=== PATIENT | female | born 1975 | race Caucasian/White ===

== ENCOUNTER 2016-06-22 14:46 | Inpatient (IN) | payer OTHER ==
[2016-06-22] MEDS ORDERED: ONDANSETRON 4 MG/2 ML VIAL IVP PRN (16:09)
[2016-06-22] MEDS ORDERED: RIVAROXABAN 10 MG TAB PO SCH (17:30)
[2016-06-22] MEDS: HYDROmorphone 1 MG/ML 1 ML SYRINGE IVP PRN (17:36)
[2016-06-22 17:41] LABS: Basophils % (A) 1 %; CH 30.4; CHCM 33.1; Eosinophils # (A) 0.1 k/uL (0-0.7); Eosinophils % (A) 2 %; HCT 41.5 % (34.0-46.0); HDW 2.37; HGB 13.4 gm/dL (11.4-16.0); Luc # (Auto) 0.16; Luc % (Auto) 3; Lymphocytes # (A) 1.4 k/uL (1.0-4.8); Lymphocytes % (A) 21 %; MCH 29.9 pg (25.0-35.0); MCHC 32.4 g/dL (31.0-37.0); MCV 92.3 fL (80.0-100.0); Monocytes # (A) 0.4 k/uL (0-1.0); Monocytes % (A) 6 %; Neutrophils # (A) 4.5 k/uL (1.3-7.7); Neutrophils % (A) 68 %; RBC 4.49 m/uL (3.80-5.40); RDW 12.5 % (11.5-15.5); WBC 6.5 k/uL (3.8-10.6); WBC (Perox) 6.74
[2016-06-22 17:49] LABS: Prothrombin Time 10.6 sec (9.0-12.0)
[2016-06-22 18:11] LABS: ALT 25 U/L (9-52); AST 16 U/L (14-36); Alkaline Phosphatase 57 U/L (38-126); Anion Gap 10 mmol/L; Blood Urea Nitrogen 12 mg/dL (7-17); Calcium 9.1 mg/dL (8.4-10.2); Carbon Dioxide 25 mmol/L (22-30); Chloride 104 mmol/L (98-107); Glucose 88 mg/dL (74-99); Non-African American GFR(MDRD) >60 (>60 ml/min/1.73 sqM); Potassium 4.4 mmol/L (3.5-5.1); Sodium 139 mmol/L (137-145); Total Bilirubin 0.4 mg/dL (0.2-1.3); Total Protein 6.6 g/dL (6.3-8.2)
[2016-06-22 18:24] VITALS: BMI 27.2
--- NOTE | 2016-06-22 19:46 | CONS ---
DATE OF CONSULTATION: This is a 41-year-old female. She has been admitted to Dr. Kumar Ram's service. Patient had a history of trauma to the right lower extremity a week ago when she went for asking and according to the patient she dislocated knee. She went to [facility]. After the reduction she was sent to [facility]. Patient was seen by Dr. Kumar Ram and is scheduled to have MRI on Saturday. Patient has swelling in the right lower extremity with marked tenderness. The patient has been admitted and venous ultrasound of the right leg showed no evidence of acute DVT in the right lower extremity from groin to the knee and the thrombus below the level of the knee felt to be present which are not compressible. PERSONAL HISTORY: No allergies. MEDICAL HISTORY: No history of diabetes, hypertension, coronary artery disease. On examination, the patient's vital signs are stable. No shortness of breath. Neck is supple. Chest is clear to auscultation. Abdomen is soft. Femoral pulses are present. Dorsalis pedis is palpable. Patient has a compression wrap to the right knee. IMPRESSION: Infrapopliteal deep venous thrombosis. Discussed with Dr. Nunez who is her medical care doctor and we agreed to put her on Xarelto and if patient goes home, I will follow in my office and next Saturday we will repeat the ultrasound.
[2016-06-22] MEDS: HYDROcodone/APAP 5-325MG 1 EACH TAB PO PRN (20:26)
[2016-06-23] MEDS: HYDROmorphone 1 MG/ML 1 ML SYRINGE IVP PRN ×2 (00:41→09:50)
[2016-06-23 02:26] VITALS: RESP 16
[2016-06-23] MEDS: HYDROcodone/APAP 5-325MG 1 EACH TAB PO PRN ×2 (04:14→14:03)
[2016-06-23 07:34] VITALS: BP 116/59; PULSE 68; TEMP 98.4
--- NOTE | 2016-06-23 10:04 | P.HPOR ---
History of Present Illness H&P Date: 06/23/16 Chief Complaint: Right lower extremity DVT This is a 41-year-old female who originally presented in our office with right knee pain since sustaining an injury while skiing on 06/16/2016. She was seen in the ER at [facility] and x-rays were obtained and a knee immobilizer was applied. The patient did follow-up in our office yesterday with Dr. Ram, 06/22/2016. She has been using crutches. Patient was complaining of significant pain behind the calf and medial joint line pain. The patient was sent for a venous Doppler that revealed a small segment of DVT in the posterior tibial pain. The patient was subsequently admitted for anticoagulation and further evaluation. An MRI of the right knee was also ordered which is scheduled for 06/25/2016, at our office. Patient has been seen and evaluated by Dr. Lorenzo from vascular surgery and he recommends treatment with Xarelto. Today, the patient states that her calf is feeling better and her swelling has improved. She states that she is having significant pain when the when the leg is not elevated and she is up ambulating to the bathroom. Today, she denies fever, chills, rigors, abdominal pain, shortness breath, and chest pain. Review of Systems Constitutional: Reports as per HPI Past Medical History Past Medical History: No Reported History Additional Past Medical History / Comment(s): RT EYE GLAUCOMA,endometreosis, dysmenorrhea(had partial hysterectomy still has ovaries), murmur," leaky valve" , palpatations, kidney stone, ibs, stress incont of urine. mono as teenager. "for about a year had tested positive for lupus anticoag then stopped testing positive and about the same time was told by one dr she had ms(lesions on brain) -went to [facility] for neurolgy and they said she did'nt have it- nothing found", recent rt knee injury d/t skiing accident-using crutches/w/c History of Any Multi-Drug Resistant Organisms: None Reported Past Surgical History: Appendectomy, Cholecystectomy, Hysterectomy Additional Past Surgical History / Comment(s): laparoscopy d/t endometreosis, partial hysterectomy and panniculectomy 2010 Past Anesthesia/Blood Transfusion Reactions: Previous Problems w/ Anesthesia Additional Past Anesthesia/Blood Transfusion Reaction / Comment(s): difficulty waking Past Psychological History: Anxiety, Depression Smoking Status: Current some day smoker Past Alcohol Use History: Occasional Past Drug Use History: None Reported Medications and Allergies Home Medications Medication Instructions Recorded Confirmed Type HYDROcodone/APAP 5-325MG [[place] 1 - 2 tab PO Q4HR PRN 06/22/16 06/22/16 History 5-325] Ibuprofen [Advil] 600 mg PO DAILY PRN 06/22/16 06/22/16 History Latanoprost [Xalatan 0.005%] 1 drop BOTH EYES HS 06/22/16 06/22/16 History Allergies Allergy/AdvReac Type Severity Reaction Status Date / Time No Known Allergies Allergy Verified 06/22/16 15:40 Physical Examination The patient is in no acute distress. She is alert and oriented 3. Focused exam of the right lower extremity reveals moderate swelling to the right knee and calf. No open wounds present. She has limited range of motion to the right knee and foot/ankle due to pain and guarding. She is pain upon palpation to the posterior calf area and medial joint line. Neurological and circulatory status is intact to the right lower extremity. Results - Labs Labs: H & H 06/22/16 Range/Units 17:24 Hgb 13.4 (11.4-16.0) gm/dL Hct 41.5 (34.0-46.0) % Coagulation 06/22/16 Range/Units 17:24 INR 1.0 (<1.1) Result Diagrams: 06/22/16 17:24 06/22/16 17:24 - Diagnostic results Knee x-ray: other (Right knee x-ray obtained in our office reveals no obvious acute fracture.) Assessment and Plan (1) Deep vein thrombosis (DVT) of right lower extremity Status: Acute (2) Knee pain, right Status: Acute Plan: The clinical and doppler findings were discussed with the patient. The patient was started on Xarelto yesterday. Case management is currently looking into possible payment options for outpatient Xarelto due to lack of insurance at this time. The patient has applied for Medicaid which will be retroactive starting 06/06/2016. Dr. Lorenzo has seen and evaluated the patient and is recommending follow-up next week on Saturday for a repeat Doppler. Patient is also scheduled for a right knee MRI on [place] with follow-up with Dr. Ram on Saturday. The patient was instructed to continue to obtain MRI and follow- ups. The patient is orthopedically stable for discharge today as long as Xarelto is obtained and Dr. Nunez has signed off. The patient currently has pain medication at home in the form of [place] which she will continue. She also continue right knee immobilizer and/or brace as tolerated. Continue protective weightbearing with crutches.
[2016-06-23] MEDS ORDERED: HYDROcodone/APAP 5-325MG 1 EACH TAB PO PRN (14:03)
--- NOTE | 2016-06-23 14:03 | P.CONS ---
History of Present Illness - Reason for Consult Consult date: 06/23/16 Medical management of anticoagulation - History of Present Illness The patient is a 41-year-old white female, well-known to me. She has a history of depression and nonspecific medical complaints previously worked of his MS. She was out skiing 1 week ago and had never been before. She reports falling and twisting her right knee. She was in severe pain and was seen and Collette Washington. Placed in a knee immobilizer. She reports increasing pain in the right posterior calf. Report it became hard and very uncomfortable. She was seen by Dr. Ram, at orthopedic [facility] and was scheduled for stat ultrasound for DVT. A DVT was found at that point and she was admitted for further evaluation and management. Dr. Lorenzo and I discussed Leny's case and felt Xarelto would be the best anticoagulation for her. She has already been started on this. Review of Systems All systems: negative Constitutional: Denies chills, Denies fever Eyes: denies blurred vision, denies pain Ears, nose, mouth and throat: Denies headache, Denies sore throat Cardiovascular: Denies chest pain, Denies shortness of breath Respiratory: Denies cough Gastrointestinal: Denies abdominal pain, Denies diarrhea, Denies nausea, Denies vomiting Genitourinary: Denies dysuria, Denies hematuria Musculoskeletal: Reports as per HPI, Reports limitation of motion, Reports muscle cramps Musculoskeletal: right: knee stiffness, knee swelling Integumentary: Denies pruritus, Denies rash Neurological: Denies numbness, Denies weakness Psychiatric: Denies anxiety, Denies depression Endocrine: Denies fatigue, Denies weight change Past Medical History Past Medical History: No Reported History, Eye Disorder (Right eye glaucoma), Neurologic Disorder (Previous MS suspect, ruled out) History of Any Multi-Drug Resistant Organisms: None Reported Past Surgical History: Appendectomy, Cholecystectomy, Hysterectomy Additional Past Surgical History / Comment(s): laparoscopy d/t endometreosis, partial hysterectomy and panniculectomy 2010 Past Anesthesia/Blood Transfusion Reactions: Previous Problems w/ Anesthesia Additional Past Anesthesia/Blood Transfusion Reaction / Comm: difficulty waking Past Psychological History: Anxiety, Depression Smoking Status: Current some day smoker Past Alcohol Use History: Occasional Past Drug Use History: None Reported Medications and Allergies Home Medications Medication Instructions Recorded Confirmed Type HYDROcodone/APAP 5-325MG [[place] 1 - 2 tab PO Q4HR PRN 06/22/16 06/22/16 History 5-325] Ibuprofen [Advil] 600 mg PO DAILY PRN 06/22/16 06/22/16 History Latanoprost [Xalatan 0.005%] 1 drop BOTH EYES HS 06/22/16 06/22/16 History Allergies Allergy/AdvReac Type Severity Reaction Status Date / Time No Known Allergies Allergy Verified 06/22/16 15:40 Physical Exam Vitals: Vital Signs Temp Pulse Resp BP BP Pulse Ox 06/23/16 07:33 98.4 F 68 16 116/59 98 06/23/16 02:00 98.1 F 72 16 125/68 97 06/22/16 19:30 99.1 F 76 20 120/53 96 06/22/16 15:41 98.5 F 76 14 120/76 97 Intake and Output 06/22/16 06/23/16 06/23/16 22:59 06:59 14:59 Intake Total 580 200 360 Balance 580 200 360 Intake: Oral 580 200 360 Other: Voiding Method Toilet Toilet # Voids 2 4 Weight 86.183 kg GENERAL: Well-appearing, well-nourished and in no acute distress. HEAD: Atraumatic, normocephalic. EYES: Pupils equal round and reactive to light, extraocular movements intact, sclera anicteric, conjunctiva are normal. ENT:nares patent, oropharynx clear without exudates. Moist mucous membranes. NECK: Normal range of motion, supple without lymphadenopathy or JVD, no thyromegaly LUNGS: Breath sounds clear to auscultation bilaterally and equal. No wheezes rales or rhonchi. HEART: Regular rate and rhythm without murmurs, rubs or gallops.S1S2 Normal ABDOMEN: Soft, nontender, normoactive bowel sounds. No guarding, no rebound. No masses appreciated. EXTREMITIES: Right lower extremity shows mild calor to the right calf. There is an ice pack on this time. Range of motion was deferred. NEUROLOGICAL: Cranial nerves II through XII grossly intact. Normal speech, normal gait. PSYCH: Normal mood, normal affect. SKIN: Warm, Dry, normal turgor, no rashes or lesions noted. Results CBC & Chem 7: 06/22/16 17:24 06/22/16 17:24 Assessment and Plan Plan: Acute right popliteal DVT: She's been started on Xarelto. Dr. Lorenzo and I discussed her case. She will follow-up with him outpatient. She'll remain on Xarelto 20 mg daily at this time. Acute right knee injury: Orthopedics is following. She has an MRI scheduled on Saturday. She currently has Dilaudid and [place] for pain Anxiety: She will restart her Klonopin that she previously had. Depression: She'll follow-up in the office for further discussions of this. We will reevaluate her past medications and what had it had not worked for her. Medically she can be cleared for discharge she is anticoagulated adequately with Xarelto. She will remain on 20 mg daily. Thank you for allowing me to participate in tongue his care, please contact me should any questions arise.
[2016-06-23] MEDS ORDERED: clonazePAM 0.5 MG TAB PO SCH (21:00)
[2016-06-23] MEDS ORDERED: LATANOPROST 0.005% OPHTH DROPS 2.5 ML BTL BOTH EYES SCH (21:00)
--- NOTE | 2016-06-27 14:10 | P.DS ---
Providers Date of admission: 06/22/16 15:09 Expected date of discharge: 06/23/16 Attending physician: Kumar Ram Consults: 06/22/16 15:19 Consult Physician Routine Consulting Provider: Camilo Lorenzo Consult Reason/Comments: right leg DVT Do you want consulting provider notified?: Yes Consult Physician Routine Consulting Provider: Santy Nunez Consult Reason/Comments: medical management/anticoagulation management Do you want consulting provider notified?: Yes Primary care physician: Santy Nunez - Discharge Diagnosis(es) (1) Deep vein thrombosis (DVT) of right lower extremity Status: Acute (2) Knee pain, right Status: Acute Hospital Course: The patient is a 41-year-old female who presented to our office with right knee pain after sustaining an injury while skiing on 06/16/2016. She was seen in the ER at [facility] and x-rays were obtained. The patient was placed in a knee immobilizer and using crutches at that time. She presented to our office for a follow-up with Dr. Ram on 06/22/2016. A venous Doppler was ordered due to pain and swelling in her right calf. The Doppler revealed a small segment of DVT in the posterior tibial vein. The patient was admitted directly to our service for DVT treatment. The patient was seen and evaluated by Dr. Lorenzo from vascular surgery and her primary care physician Dr. Nunez. She was placed on Xarelto for DVT treatment. On the day of discharge, the patient states that her leg seems to be improved but is still having some pain to the anterior-medial aspect of her right lower leg. Vital signs and labs are stable on the day of discharge. On exam the patient is in no acute distress. She is alert and oriented 3. Focused exam of the right lower extremity reveals moderate swelling to the right knee and calf area no open wounds are present. She has limited range of motion to the right knee and foot/ankle due to pain and guarding. She has pain upon palpation to the posterior calf and medial joint line. Neurological and circulatory status is intact to the right lower extremity. The patient is orthopedically stable for discharge home today. Patient Condition at Discharge: Stable Plan - Discharge Summary New Discharge Prescriptions: Rivaroxaban [Xarelto] 20 mg PO DAILY #30 tab Discharge Medication List HYDROcodone/APAP 5-325MG [[place] 5-325] 1 - 2 tab PO Q4HR PRN 06/22/16 [History] Ibuprofen [Advil] 600 mg PO DAILY PRN 06/22/16 [History] Latanoprost [Xalatan 0.005%] 1 drop BOTH EYES HS 06/22/16 [History] Rivaroxaban [Xarelto] 20 mg PO DAILY #30 tab 06/23/16 [Rx] Follow up Appointment(s)/Referral(s): Kumar Ram DO [Doctor of Osteopathic Medicine] - 1 Week (as previously scheduled ) Camilo Lorenzo MD [STAFF PHYSICIAN] - (follow up on Saturday06-27-2016 in office) Activity/Diet/Wound Care/Special Instructions: Right knee MRI scheduled for 06/25/2016. Anticoagulation per Dr. Nunez and vascular Keep right leg elevated Continue right knee immoblizer/brace Continue protective weightbearing with crutches Follow up with Dr. Ram as previously scheduled. Call [facility] with any questions or concerns, . Discharge Disposition: HOME SELF-CARE
== END 2016-06-23 16:05 | disposition home or self-care (01) | DRG 301 ==
LOC: 3SUR 15:09
PROVIDERS: ADMIT Orthopaedic Surgery; ATTEND Orthopaedic Surgery
DX: I82.431 Acute embolism and thrombosis of right popliteal vein (principal); F32.9 Major depressive disorder, single episode, unspecified; F41.9 Anxiety disorder, unspecified; H40.9 Unspecified glaucoma; S83.104S Unspecified dislocation of right knee, sequela; N39.3 Stress incontinence (female) (male); K58.9 Irritable bowel syndrome, unspecified; F17.200 Nicotine dependence, unspecified, uncomplicated; Z79.899 Other long term (current) drug therapy; Z87.442 Personal history of urinary calculi; Z90.710 Acquired absence of both cervix and uterus; Z90.49 Acquired absence of other specified parts of digestive tract; Z91.81 History of falling; Z87.42 Personal history of other diseases of the female genital tract; V00.3 Flat-bottomed pedestrian conveyance accident; Z86.19 Personal history of other infectious and parasitic diseases; Y93.23 Activity, snow (alpine) (downhill) skiing, snowboarding, sledding, tobogganing and snow tubing
CPT/HCPCS: 80053; 85025; 85610

== ENCOUNTER → 2016-06-22 | Outpatient (CLI) | payer SELFPAY ==
[~2016-06-22] MED LIST: HYDROcodone/APAP 5-325MG 1 EACH TAB PO PRN
--- NOTE | 2016-06-22 14:01 | US ---
EXAMINATION TYPE: US venous doppler duplex LE RT DATE OF EXAM: 06/22/2016 1:37 PM COMPARISON: Prior right lower extremity venous ultrasound September 30, 2014. CLINICAL HISTORY: I80.9 Phlebitis and thrombophlebitis of unspecified. Skiing injury to right knee an d lower leg with dislocated right knee with medial collateral ligament sprain; right posterior calf p ain SIDE PERFORMED: Right VESSELS IMAGED: Common Femoral Vein Deep Femoral Vein Greater Saphenous Vein * Femoral Vein Popliteal Vein Proximal Calf Veins (* superficial vessels) TECHNOLOGIST IMPRESSION: wnl Right Leg: Short segment of posterior tibial vein pair is noted with internal echoes mid calf and no color flow or compression is demonstrated mid level; otherwise other assessed veins are negative for DVT and SVT IMPRESSION: No evidence of acute DVT right lower extremity from groin to knee. Short segment thrombu s below level of knee felt present by technologist and there is absent color flow and noncompressibil ity noted in the proximal calf veins.
== END | disposition home or self-care (01) ==
LOC: RADUSWWP 12:46
PROVIDERS: ATTEND Orthopaedic Surgery
DX: M25.561 Pain in right knee (principal); S83.411A Sprain of medial collateral ligament of right knee, initial encounter; I80.9 Phlebitis and thrombophlebitis of unspecified site; X58.XXXA Exposure to other specified factors, initial encounter

== ENCOUNTER 2016-10-17 19:40 | Emergency (ER) | payer OTHER ==
--- NOTE | 2016-10-17 21:30 | US ---
EXAMINATION TYPE: US venous doppler duplex LE RT DATE OF EXAM: 10/17/2016 9:15 PM COMPARISON: Prior in PACS CLINICAL HISTORY: Pain right leg . Patient states history of clot in right leg in June SIDE PERFORMED: Right TECHNIQUE: The lower extremity deep venous system is examined utilizing real time linear array sonog jojo with graded compression, doppler sonography and color-flow sonography. VESSELS IMAGED: External Iliac Vein (EIV) Common Femoral Vein Deep Femoral Vein Greater Saphenous Vein * Femoral Vein Popliteal Vein Small Saphenous Vein * Proximal Calf Veins (* superficial vessels) Right Leg: Negative for DVT IMPRESSION: Normal exam. No evidence of deep venous thrombosis in the right leg.
--- NOTE | 2016-10-17 21:37 | ED ---
Extremity Problem HPI - General Chief complaint: Extremity Problem,Nontraumatic Stated complaint: Leg Pain/Poss Blood clot Time Seen by Provider: 10/17/16 20:13 Source: patient, RN notes reviewed, old records reviewed Mode of arrival: ambulatory Limitations: no limitations - History of Present Illness Initial comments: 41-year-old female presents to the right calf pain and ankle swelling for the past day. Patient reports that she's had a history of blood clot in the past. Patient reports a few months ago she had a sprain to her knee and is currently being treated by a physician in [place] for torn ACL, MCL the knee. The report that she is on a CPM machine at night. Patient states that over the past few days she's noticed the swelling and pain over her Achilles tendon. Patient states that after her knee injury she developed a blood clot and was placed on Velcro wrist. Patient reports the clot was resolved. She reports that the pain she is experiencing the past day with similar to when she initially had her clot and is concerned. Patient denies any prolonged sitting, smoking, or history of control or estrogen use. Patient states that she's had no fever or chills, chest pain or shortness of breath. Denies any abdominal pain, nausea or vomiting, dysuria or hematuria, diarrhea or melena. - Related Data Home Medications Medication Instructions Recorded Confirmed HYDROcodone/APAP 5-325MG [[place] 1 tab PO TID PRN 06/22/16 10/17/16 5-325] Latanoprost [Xalatan 0.005%] 1 drop BOTH EYES HS 06/22/16 10/17/16 Aspirin EC [Ecotrin Low Dose] 81 mg PO DAILY PRN 10/17/16 10/17/16 Allergies Allergy/AdvReac Type Severity Reaction Status Date / Time No Known Allergies Allergy Verified 10/17/16 20:32 Review of Systems ROS Statement: Those systems with pertinent positive or pertinent negative responses have been documented in the HPI. ROS Other: All systems not noted in ROS Statement are negative. Past Medical History Past Medical History: No Reported History, Eye Disorder, Neurologic Disorder Additional Past Medical History / Comment(s): RT EYE GLAUCOMA,endometreosis, dysmenorrhea(had partial hysterectomy still has ovaries), murmur," leaky valve" , palpatations, kidney stone, ibs, stress incont of urine. mono as teenager. "for about a year had tested positive for lupus anticoag then stopped testing positive and about the same time was told by one dr she had ms(lesions on brain) -went to [facility] for neurolgy and they said she did'nt have it- nothing found", recent rt knee injury d/t skiing accident-using crutches/w/c History of Any Multi-Drug Resistant Organisms: None Reported Past Surgical History: Appendectomy, Cholecystectomy, Hysterectomy Additional Past Surgical History / Comment(s): laparoscopy d/t endometreosis, partial hysterectomy and panniculectomy 2010 Past Anesthesia/Blood Transfusion Reactions: Previous Problems w/ Anesthesia Additional Past Anesthesia/Blood Transfusion Reaction / Comment(s): difficulty waking Past Psychological History: Anxiety, Depression Smoking Status: Current some day smoker Past Alcohol Use History: Occasional Past Drug Use History: None Reported General Exam - General Exam Comments Initial Comments: All. 41-year-old female. No acute distress. Limitations: no limitations General appearance: alert, in no apparent distress Head exam: Present: atraumatic, normocephalic, normal inspection Eye exam: Present: normal appearance, PERRL, EOMI. Absent: scleral icterus, conjunctival injection, periorbital swelling ENT exam: Present: normal exam, mucous membranes moist Neck exam: Present: normal inspection. Absent: tenderness, meningismus, lymphadenopathy Respiratory exam: Present: normal lung sounds bilaterally. Absent: respiratory distress, wheezes, rales, rhonchi, stridor Cardiovascular Exam: Present: regular rate, normal rhythm, normal heart sounds. Absent: systolic murmur, diastolic murmur, rubs, gallop, clicks GI/Abdominal exam: Present: soft, normal bowel sounds. Absent: distended, tenderness, guarding, rebound, rigid Extremities exam: Present: normal inspection, full ROM, normal capillary refill , other (Patient has some minor swelling over the right ankle. No significant calf tenderness. No evidence of erythema or warmth.). Absent: tenderness, pedal edema, joint swelling, calf tenderness Back exam: Present: normal inspection Neurological exam: Present: alert, oriented X3, CN II-XII intact Psychiatric exam: Present: normal affect, normal mood Skin exam: Present: warm, dry, intact, normal color. Absent: rash Course Vital Signs 10/17/16 10/17/16 19:46 21:38 Temperature 98.6 F 98.9 F Pulse Rate 67 62 Respiratory 16 18 Rate Blood Pressure 117/59 118/57 O2 Sat by Pulse 98 100 Oximetry Medical Decision Making - Medical Decision Making 41-year-old female presents to the right calf pain and ankle swelling for the past day. Patient reports that she's had a history of blood clot in the past. Patient reports a few months ago she had a sprain to her knee and is currently being treated by a physician in [place] for torn ACL, MCL the knee. The report that she is on a CPM machine at night. Patient states that over the past few days she's noticed the swelling and pain over her Achilles tendon. Patient states that after her knee injury she developed a blood clot and was placed on Velcro wrist. Patient reports the clot was resolved. She reports that the pain she is experiencing the past day with similar to when she initially had her clot and is concerned. Patient denies any prolonged sitting, smoking, or history of control or estrogen use. Patient states that she's had no fever or chills, chest pain or shortness of breath. Denies any abdominal pain, nausea or vomiting, dysuria or hematuria, diarrhea or melena. Patient does have some minor swelling over the right lower ankle. No evidence of erythema or significant calf tenderness or swelling. Patient to have her ultrasound is negative for any blood clot. Patient is a deformity of self. Patient has been advised to follow-up with her primary care provider. Patient understands treatment plan will comply. Return parameters were discussed. Disposition Clinical Impression: Sprain of calcaneofibular ligament of right ankle Disposition: HOME SELF-CARE Condition: Good Instructions: Ankle Strain (ED) Additional Instructions: Patient advised to rest, ice, and elevate extremity. Apply ice over the area. Follow-up with primary care provider symptoms continue to persist. Return to the emergency department if any alarming signs or symptoms occur. Referrals: Santy Nunez MD [Primary Care Provider] - 1-2 days Time of Disposition: 21:36
[2016-10-17 21:39] VITALS: BP 118/57; PULSE 62; RESP 18; TEMP 98.9
== END 2016-10-17 21:45 | disposition home or self-care (01) ==
LOC: EC 19:40
DX: S93.411A Sprain of calcaneofibular ligament of right ankle, initial encounter (principal); H40.9 Unspecified glaucoma; F17.200 Nicotine dependence, unspecified, uncomplicated; Z79.899 Other long term (current) drug therapy; X58.XXXA Exposure to other specified factors, initial encounter
CPT/HCPCS: 99284

== ENCOUNTER 2017-06-17 15:41 | Emergency (ER) | payer OTHER ==
[2017-06-17 15:53] VITALS: BP 131/62; PULSE 77; RESP 18; TEMP 99.1
--- NOTE | 2017-06-17 16:30 | ED ---
General Adult HPI - General Chief complaint: Upper Respiratory Infection Stated complaint: flu symptoms Time Seen by Provider: 06/17/17 16:15 Source: patient, RN notes reviewed Mode of arrival: ambulatory Limitations: no limitations - History of Present Illness Initial comments: Patient 42-year-old female who presents emergency room today with a chief complaint of cough congestion. She does admit that she was suffering from a sinus infection for the last few weeks and a lot of drainage. She states she feels like it when down into her chest now. She does admit that she's had some body aches and chills that started last night as well. Patient does admit to sputum production that screening color. She denies any other complaints or symptoms at this time. Patient denies any recent fever, chills, shortness of breath, chest pain, back pain, abdominal pain, nausea or vomiting, numbness or tingling, headaches or visual changes, or any other complaints. - Related Data Home Medications Medication Instructions Recorded Confirmed Latanoprost [Xalatan 0.005%] 1 drop BOTH EYES HS 06/17/17 06/17/17 Previous Rx's Medication Instructions Recorded Azithromycin [Zithromax Z-pack] 0 mg PO DIRECTED #6 tab 06/17/17 predniSONE 20 mg PO BID 5 Days tab 06/17/17 Allergies Allergy/AdvReac Type Severity Reaction Status Date / Time No Known Allergies Allergy Verified 06/17/17 15:58 Review of Systems ROS Statement: Those systems with pertinent positive or pertinent negative responses have been documented in the HPI. ROS Other: All systems not noted in ROS Statement are negative. Past Medical History Past Medical History: Eye Disorder, Neurologic Disorder Additional Past Medical History / Comment(s): RT EYE GLAUCOMA,endometreosis, dysmenorrhea(had partial hysterectomy still has ovaries), murmur," leaky valve" , palpatations, kidney stone, ibs, stress incont of urine. mono as History of Any Multi-Drug Resistant Organisms: None Reported Past Surgical History: Appendectomy, Cholecystectomy, Hysterectomy Additional Past Surgical History / Comment(s): laparoscopy d/t endometreosis, partial hysterectomy and panniculectomy 2010 Past Anesthesia/Blood Transfusion Reactions: Previous Problems w/ Anesthesia Additional Past Anesthesia/Blood Transfusion Reaction / Comment(s): difficulty waking Past Psychological History: Anxiety, Depression Smoking Status: Current some day smoker Past Alcohol Use History: Occasional Past Drug Use History: None Reported General Exam - General Exam Comments Initial Comments: General: The patient is awake and alert, in no distress, and does not appear acutely ill. Eye: Pupils are equal, round and reactive to light, extra-ocular movements are intact. No nystagmus. There is normal conjunctiva bilaterally. No signs of icterus. Ears, nose, mouth and throat: There are moist mucous membranes and no oral lesions. Neck: The neck is supple. Cardiovascular: There is a regular rate and rhythm. No murmur, rub or gallop is appreciated. Respiratory: Lungs are clear to auscultation, respirations are non-labored, breath sounds are equal. No wheezes, stridor, rales, or rhonchi. Musculoskeletal: Normal ROM, no tenderness. Strength 5/5. Sensation intact. Pulses equal bilaterally 2+. Neurological: A&O x 3. CN II-XII intact, There are no obvious motor or sensory deficits. Coordination appears grossly intact. Speech is normal. Skin: Skin is warm and dry and no rashes or lesions are noted. Psychiatric: Cooperative, appropriate mood & affect, normal judgment. Limitations: no limitations Course Vital Signs 06/17/17 15:49 Temperature 99.1 F Pulse Rate 77 Respiratory 18 Rate Blood Pressure 131/62 O2 Sat by Pulse 100 Oximetry Medical Decision Making - Medical Decision Making Patient reexamined at this time shows no signs of distress. Influenza is negative. Emergency room. Patient's chest x-rays negative for pneumonia. Will be covered for a bronchitis and sinus infection. Patient also placed on a little coarse of steroids for her symptoms. Risperdal extremities return if symptoms increase or worsen or for new concerns. - Lab Data Lab Results 06/17/17 Range/Units 16:32 Influenza Type A RNA Not Detected (Not Detectd) Influenza Type B (PCR) Not Detected (Not Detectd) Disposition Clinical Impression: Acute sinusitis Disposition: HOME SELF-CARE Condition: Good Instructions: Sinusitis (ED) Additional Instructions: Please use medication as discussed. Please follow-up with family doctor in the next 2 days of symptoms have not improved. Please return to emergency room if the symptoms increase or worsen or for any other concerns. Prescriptions: Azithromycin [Zithromax Z-pack] 0 mg PO DIRECTED #6 tab predniSONE 20 mg PO BID 5 Days tab Referrals: Santy Nunez MD [Primary Care Provider] - 1-2 days Time of Disposition: 17:18
--- NOTE | 2017-06-17 17:08 | XR ---
EXAMINATION TYPE: XR chest 2V DATE OF EXAM: 06/17/2017 COMPARISON: 04/12/2010 HISTORY: Cough and congestion TECHNIQUE: Frontal and lateral views of the chest are obtained. FINDINGS: Heart and mediastinum are normal. Lungs are clear. Diaphragm is normal. Bony thorax is int act. IMPRESSION: Normal chest. No change.
== END 2017-06-17 17:26 | disposition home or self-care (01) ==
LOC: EC 15:41
DX: J01.90 Acute sinusitis, unspecified (principal); H40.9 Unspecified glaucoma; R52 Pain, unspecified; F17.200 Nicotine dependence, unspecified, uncomplicated; Z79.899 Other long term (current) drug therapy
CPT/HCPCS: 71046; 87502; 99283

== ENCOUNTER 2018-10-10 23:19 | Emergency (ER) | payer OTHER ==
--- NOTE | 2018-10-11 03:31 | ED ---
General Adult HPI - General Source: patient, RN notes reviewed, old records reviewed Mode of arrival: ambulatory Limitations: no limitations <Tad Bateman - Last Filed: 10/12/18 05:33> <Sandra Lei - Last Filed: 10/12/18 21:24> - General Chief complaint: ENT Stated complaint: Dental pain Time Seen by Provider: 10/11/18 03:04 - History of Present Illness Initial comments: 43-year-old female patient with no pertinent past medical history presents to ED with right tooth pain. Patient reports that she recently had some dental work done, and had some partial fillings placed. Patient reports that she has pain in redness on her 12th tooth. Patient states there is no way she can be . Patient denies any other complaints at this time. Systemic: Pt denies fatigue, fever/chills, rash. Pt denies weakness, night sweats, weight loss. Neuro: Pt denies headache, visual disturbances, syncope or pre-syncope. HEENT: Pt denies ocular discharge or irritation, otalgia, rhinorrhea, pharyngitis or notable lymphadenopathy. Cardiopulmonary: Pt denies chest pain, SOB, heart palpitations, dyspnea on exe rtion. Abdominal/GI: Pt denies abdominal pain, n/v/d. : Pt denies dysuria, burning w/ urination, frequency/urgency. Denies new onset urinary or bowel incontinence. MSK: Pt denies myalgia, loss of strength or function in extremities. Neuro: Pt denies new onset weakness, paresthesias. (Tad Bateman) - Related Data Home Medications Medication Instructions Recorded Confirmed Latanoprost [Xalatan 0.005%] 1 drop BOTH EYES HS 06/17/17 06/17/17 Previous Rx's Medication Instructions Recorded Azithromycin [Zithromax Z-pack] 0 mg PO DIRECTED #6 tab 06/17/17 predniSONE 20 mg PO BID 5 Days tab 06/17/17 Clindamycin [Cleocin] 450 mg PO Q8HR 10 Days #30 capsule 10/11/18 Allergies Allergy/AdvReac Type Severity Reaction Status Date / Time No Known Allergies Allergy Verified 10/10/18 23:31 Review of Systems ROS Other: All systems not noted in ROS Statement are negative. <Tad Bateman - Last Filed: 10/12/18 05:33> ROS Other: All systems not noted in ROS Statement are negative. <Sandra Lei Greg - Last Filed: 10/12/18 21:24> ROS Statement: Those systems with pertinent positive or pertinent negative responses have been documented in the HPI. Past Medical History Past Medical History: Eye Disorder, Neurologic Disorder Additional Past Medical History / Comment(s): RT EYE GLAUCOMA,endometreosis,dysmenorrhea(had partial hysterectomy still has ovaries), murmur," leaky valve", palpatations, kidney stone, ibs, stress incont of urine. mono as History of Any Multi-Drug Resistant Organisms: None Reported Past Surgical History: Appendectomy, Cholecystectomy, Hysterectomy Additional Past Surgical History / Comment(s): laparoscopy d/t endometreosis, partial hysterectomy and panniculectomy 2010 Past Anesthesia/Blood Transfusion Reactions: Previous Problems w/ Anesthesia Additional Past Anesthesia/Blood Transfusion Reaction / Comment(s): difficulty waking Past Psychological History: Anxiety, Depression Smoking Status: Former smoker Past Alcohol Use History: Occasional Past Drug Use History: None Reported <Tad Bateman - Last Filed: 10/12/18 05:33> General Exam Limitations: no limitations <Tad Bateman - Last Filed: 10/12/18 05:33> - General Exam Comments Initial Comments: Constitutional: NAD, AOX3, Pt has pleasant affect. HEENT: NC/AT, trachea midline, neck supple, no lymphadenopathy. Posterior pharynx non erythematous, without exudates. External ears appear normal, without discharge. Mucous membranes moist. Eyes PERRLA, EOM intact. There is no scleral icterus. No pallor noted. Mild erythema noted at 12th tooth, no drainable abscess. Cardiopulmonary: RRR, no murmurs, rubs or gallops, no JVD noted. Lungs CTAB in anterior and posterior gao. No peripheral edema. Abdominal exam: Abdomen soft and non-distended. Abdomen non-tender to palpation in all 4 quadrants. Bowel sounds active in LLQ. No hepatosplenomegaly. No ecchymosis Neuro: CN II-XII grossly intact. No nuchal rigidity. No raccon eyes, no de león sign, no hemotympanum. No cervical spinal tenderness. MSK: No posterior calf tenderness bilaterally, homans sign negative bilaterally. Posterior tibialis and radial pulse +2 bilaterally. Sensation intact in upper and lower extremities. Full active ROM in upper and lower extremities, 5/5 stregnth. (Tad Bateman) Course Vital Signs 10/10/18 10/11/18 23:27 03:59 Temperature 98.7 F 98.4 F Pulse Rate 63 67 Respiratory 18 19 Rate Blood Pressure 117/69 126/89 O2 Sat by Pulse 100 97 Oximetry Medical Decision Making <Tad Bateman - Last Filed: 10/12/18 05:33> <Sandra Lei - Last Filed: 10/12/18 21:24> - Medical Decision Making 43-year-old female patient with no pertinent past medical history presents to ED with right tooth pain. Patient reports that she recently had some dental work done, and had some partial fillings placed. Patient reports that she has pain in redness on her 12th tooth. Patient states there is no way she can be . Patient denies any other complaints at this time. Pt VSS, afebrile. Physical exam displayed: Mild erythema noted at 12th tooth, no drainable abscess. Patient was prescribed clindamycin discharge. Patient will follow-up with dentist and primary care provider in 1-2 days. Patient return if condition worsens. Case discussed with Dr. Lei. (Tad Bateman) I was available for consultation in the emergency department. The history and physical exam were done by the midlevel provider. I was consulted for this patient's care. I reviewed the case with the midlevel provider and based on their presentation of the patient, I agree with the assessment, medical decision making and plan of care as documented. Chart was dictated using [employer] dictation software. Attempts were made to correct any dictation errors however some typographical errors may persist. (Sandra Lei) Disposition Is patient prescribed a controlled substance at d/c from ED?: No <Tad Bateman - Last Filed: 10/12/18 05:33> <Sandra Lei - Last Filed: 10/12/18 21:24> Clinical Impression: Pain, dental Disposition: HOME SELF-CARE Condition: Stable Instructions (If sedation given, give patient instructions): Toothache (ED) Additional Instructions: Patient to adhere to previously discussed treatment plan and will take medication(s) as directed. Patient to follow up with PCP in 1-2 days. Patient to return to ED if symptoms do not improve. Take medications as directed. Follow-up with dentist as soon as possible. Prescriptions: Clindamycin [Cleocin] 450 mg PO Q8HR 10 Days #30 capsule Referrals: Santy Nunez MD [Primary Care Provider] - 1-2 days
[2018-10-11 04:04] VITALS: BP 126/89; PULSE 67; RESP 19; TEMP 98.4
== END 2018-10-11 03:50 | disposition home or self-care (01) ==
LOC: EC 23:19
DX: K08.89 Other specified disorders of teeth and supporting structures (principal); H40.9 Unspecified glaucoma; Z87.891 Personal history of nicotine dependence; Z79.899 Other long term (current) drug therapy
CPT/HCPCS: 99283

== ENCOUNTER 2019-01-14 18:08 | Emergency (ER) | payer OTHER ==
[2019-01-14 18:16] VITALS: RESP 18
--- NOTE | 2019-01-14 18:48 | XR ---
EXAMINATION TYPE: XR foot complete LT DATE OF EXAM: 01/14/2019 COMPARISON: NONE HISTORY: Foot pain. Possible foreign body. TECHNIQUE: 3 views FINDINGS: I see no fracture nor dislocation. Joint spaces are normal. There is no sign of radiopaque foreign body. IMPRESSION: Negative left foot exam. No sign of a foreign body.
[2019-01-14] MEDS ORDERED: LIDOCAINE 1% INJ 10MG/ML (20 ML MDV) SQ ONE (19:21)
[2019-01-14] MEDS ORDERED: ACET/COD 300 MG/30 MG STARTER PACK 6 TAB BTL PO STA (20:08)
--- NOTE | 2019-01-14 20:08 | ED ---
Skin/Abscess/FB HPI - General Chief complaint: Skin/Abscess/Foreign Body Stated complaint: FB in foot Time Seen by Provider: 01/14/19 18:19 Source: patient Mode of arrival: ambulatory Limitations: no limitations - History of Present Illness Initial comments: Patient is a 43-year-old female presenting to the emergency Department with complaints of a possible foreign object on the bottom of her left foot 2 months. Patient states she's been having pain on the ball of her foot and in the heel of her foot for approximately 2 months. Patient states she did actually break a glass tabletop at her house presently 2 months ago and she feels like she may have 2 pieces of glass stuck in her foot. Patient states she has been trying to get out the foreign objects and has been unsuccessful. Patient states is hurting to walk more more. Patient denies any other complaints at this time. Patient denies fever, chills, drainage from the area. Upon arrival the ER vital signs are stable. - Related Data Home Medications Medication Instructions Recorded Confirmed Latanoprost [Xalatan 0.005%] 1 drop BOTH EYES HS 06/17/17 06/17/17 Previous Rx's Medication Instructions Recorded Azithromycin [Zithromax Z-pack] 0 mg PO DIRECTED #6 tab 06/17/17 predniSONE 20 mg PO BID 5 Days tab 06/17/17 Clindamycin [Cleocin] 450 mg PO Q8HR 10 Days #30 capsule 10/11/18 Sulfamethox-Tmp 800-160Mg [Bactrim 1 each PO Q12HR 5 Days #10 tab 01/14/19 Ds] Allergies Allergy/AdvReac Type Severity Reaction Status Date / Time clindamycin [From Cleocin] Allergy Unknown Verified 01/14/19 18:17 Review of Systems ROS Statement: Those systems with pertinent positive or pertinent negative responses have been documented in the HPI. ROS Other: All systems not noted in ROS Statement are negative. Past Medical History Past Medical History: Eye Disorder, Neurologic Disorder Additional Past Medical History / Comment(s): RT EYE GLAU COMA,endometreosis,dysmenorrhea(had partial hysterectomy still has ovaries), murmur," leaky valve", palpatations, kidney stone, ibs, stress incont of urine. mono as History of Any Multi-Drug Resistant Organisms: None Reported Past Surgical History: Appendectomy, Cholecystectomy, Hysterectomy Additional Past Surgical History / Comment(s): laparoscopy d/t endometreosis, partial hysterectomy and panniculectomy 2010 Past Anesthesia/Blood Transfusion Reactions: Previous Problems w/ Anesthesia Additional Past Anesthesia/Blood Transfusion Reaction / Comment(s): difficulty waking Past Psychological History: Anxiety, Depression Smoking Status: Former smoker Past Alcohol Use History: Occasional Past Drug Use History: None Reported General Exam - General Exam Comments Initial Comments: GENERAL: Well-appearing, well-nourished and in no acute distress. HEAD: Atraumatic, normocephalic. EYES: Pupils equal round and reactive to light, extraocular movements intact, sclera anicteric, conjunctiva are normal. ENT: TMs normal, nares patent, oropharynx clear without exudates. Moist mucous membranes. NECK: Normal range of motion, supple without lymphadenopathy or JVD. LUNGS: Breath sounds clear to auscultation bilaterally and equal. No wheezes rales or rhonchi. HEART: Regular rate and rhythm without murmurs, rubs or gallops. ABDOMEN: Soft, nontender, normoactive bowel sounds. No guarding, no rebound. No masses appreciated. : Deferred EXTREMITIES: Normal range of motion, no pitting or edema. No clubbing or cyanosis. Pain with palpation on the ball of the left foot as well as the heel of the foot. There is no surrounding erythema. There are 2 areas where it looks like the patient has been digging at. No signs of infection. NEUROLOGICAL: Cranial nerves II through XII grossly intact. Normal speech, normal gait. PSYCH: Normal mood, normal affect. SKIN: Warm, Dry, normal turgor, no rashes. Limitations: no limitations Course Vital Signs 01/14/19 01/14/19 18:13 20:28 Temperature 98.0 F 98.9 F Pulse Rate 70 75 Respiratory 18 18 Rate Blood Pressure 113/70 124/64 O2 Sat by Pulse 100 100 Oximetry Procedures - Procedures Initial comment: Patient was injected with approximately 1 mL of lidocaine 1% into the ball of the left foot and attempt to remove a foreign object. A #10 blade was used. Patient did not tolerate procedure well and did not wish to continue looking for the foreign object. Wound was cleaned and bandaged. Medical Decision Making - Medical Decision Making Patient is a 43-year-old female presenting with possible foreign objects in the bottom of the left foot x 2 months. She believes she has a piece of glass stuck on the ball of the left foot and in the left heel. On exam patient has pain with tenderness of the left foot. There is no surrounding erythema or signs of infection. X-rays reveal no foreign bodies seen or acute fractures. An attempt was made to inject the areas with lidocaine to see if we can see a foreign object. Patient did not tolerate the lidocaine injection very well. Patient asked me to stop. There is no foreign body seen. Was discussed with patient that she should follow-up with a head and neck surgeon. Patient is in agreement with this plan of care. Patient was given a small dose of Bactrim to prevent infection as patient was highly concerned for this. Return parameters were discussed with the patient she verbalized understanding. Patient is stable for discharge at this time. Disposition Clinical Impression: Left foot pain Disposition: HOME SELF-CARE Condition: Stable Instructions (If sedation given, give patient instructions): Metatarsalgia (DC) Additional Instructions: Please return to the Emergency Department if symptoms worsen or any other concerns. Follow-up with head and neck surgeon. Prescriptions: Sulfamethox-Tmp 800-160Mg [Bactrim Ds] 1 each PO Q12HR 5 Days #10 tab Is patient prescribed a controlled substance at d/c from ED?: No Referrals: Santy Nunez MD [Primary Care Provider] - 1-2 days
[2019-01-14 20:29] VITALS: BP 124/64; PULSE 75; TEMP 98.9
== END 2019-01-14 20:28 | disposition home or self-care (01) ==
LOC: EC 18:08
DX: M79.672 Pain in left foot (principal); H40.9 Unspecified glaucoma; Z87.891 Personal history of nicotine dependence; Z88.1 Allergy status to other antibiotic agents
CPT/HCPCS: 73630; 99283; J2001

== ENCOUNTER 2019-11-13 11:09 | Emergency (ER) | payer OTHER ==
[2019-11-13 11:22] VITALS: BP 120/65; PULSE 71; RESP 18; TEMP 98.2
[2019-11-13] MEDS ORDERED: AMOXIC-POT CLAV 875MG STARTER PACK 2 TAB BTL PO STA (11:44)
[2019-11-13] MEDS ORDERED: DIPH,PERTUS(ACELL)TETVAC-LF 0.5 ML VIAL IM ONE (11:44)
--- NOTE | 2019-11-13 11:46 | ED ---
Animal Bite HPI - General Chief Complaint: Animal Bite Stated Complaint: cat bite Time Seen by Provider: 11/13/19 11:23 Source: patient Mode of arrival: ambulatory Limitations: no limitations - History of Present Illness Initial Comments: 44 year old female presenting to the emergency department today for chief complaint of right hand Bite. Patient states yesterday evening she was bit by her new. Patient states that the previous owners had stated that the rabies vaccinations were up-to-date. Patient states that she woke up this morning and there was redness around the site of the punctures 4 in total. On the dorsal aspect mostly one on the ventral. She states she contacted her physician who told her to come to the emergency department. She was not prescribe antibiotics. Patient denies any swelling of the fingers and inability to move fingers or severe hand swelling. Denies fevers, or redness tracking up towards arm. Patient appears well on arrival. No distress, nontoxic in appearance. - Related Data Home Medications Medication Instructions Recorded Confirmed Latanoprost [Xalatan 0.005%] 1 drop BOTH EYES HS 06/17/17 06/17/17 Previous Rx's Medication Instructions Recorded RX: Azithromycin [Zithromax Z-pack] 0 mg PO DIRECTED #6 tab 06/17/17 RX: predniSONE [Deltasone] 20 mg PO BID 5 Days tab 06/17/17 RX: Clindamycin [Cleocin] 450 mg PO Q8HR 10 Days #30 capsule 10/11/18 Sulfamethox-Tmp 800-160Mg [Bactrim 1 each PO Q12HR 5 Days #10 tab 01/14/19 Ds] Amoxicillin/Potassium Clav 1 tab PO Q12HR 7 Days #14 tab 11/13/19 [Augmentin 875-125 Tablet] Allergies Allergy/AdvReac Type Severity Reaction Status Date / Time clindamycin [From Cleocin] Allergy Unknown Verified 11/13/19 11:21 Review of Systems ROS Statement: Those systems with pertinent positive or pertinent negative responses have been documented in the HPI. ROS Other: All systems not noted in ROS Statement are negative. Past Medical History Past Medical History: Eye Disorder, Neurologic Disorder Additional Past Medical History / Comment(s): RT EYE GLAUCOMA,endometreosis,dysmenorrhea(had partial hysterectomy still has ovaries), murmur," leaky valve", palpatations, kidney stone, ibs, stress incont of urine. mono as History of Any Multi-Drug Resistant Organisms: None Reported Past Surgical History: Appendectomy, Cholecystectomy, Hysterectomy Additional Past Surgical History / Comment(s): laparoscopy d/t endometreosis, partial hysterectomy and panniculectomy 2010 Past Anesthesia/Blood Transfusion Reactions: Previous Problems w/ Anesthesia Additional Past Anesthesia/Blood Transfusion Reaction / Comment(s): difficulty waking Past Psychological History: Anxiety, Depression Smoking Status: Former smoker Past Alcohol Use History: Occasional Past Drug Use History: None Reported General Exam - General Exam Comments Initial Comments: General: The patient is awake and alert, in no distress, and does not appear acutely ill. Eye: Pupils are equal, round and reactive to light, extra-ocular movements are intact. No nystagmus. There is normal conjunctiva bilaterally. No signs of icterus. Musculoskeletal: Normal ROM, no tenderness. Strength 5/5. Sensation intact. Pulses equal bilaterally 2+. Neurological: A&O x 3. CN II-XII intact, There are no obvious motor or sensory deficits. Coordination appears grossly intact. Speech is normal. Skin: Skin is warm and dry and no rashes. 4 small punctures of the right hand, there is some mild surrounding erythema/swelling. 3 on dorsal aspect one on side of thumb. Patient has no drainage.No proximal spread of redness. no fusiform swelling of digits, or limitations in ROm of fingers. Psychiatric: Cooperative, appropriate mood & affect, normal judgment. Limitations: no limitations Course Vital Signs 11/13/19 11:18 Temperature 98.2 F Pulse Rate 71 Respiratory 18 Rate Blood Pressure 120/65 O2 Sat by Pulse 98 Oximetry Medical Decision Making - Medical Decision Making Physical examination there is mild localized swelling at the puncture site. Patient's tetanus is updated. She is placed on antibiotics. I discussed how hand infections are concerning as they can quickly develop serious infections. I recommend patient take reevaluation of hand very seriously seeing doctor in 24 hours and return to the ER for any increased redness or swelling limitations of range of motion of the fingers increasing pain or fevers. Patient verbalized understanding of the importance of return parameters and timely follow-up. Patient states she would rather trial oral antibiotics rather than admission at this time. I do not feel given the physical examination clinically that there is a deep space infection. Patient discharged appearing well. Disposition Clinical Impression: Cat bite, Cellulitis Disposition: HOME SELF-CARE Condition: Good Instructions (If sedation given, give patient instructions): Animal Bite (ED) Additional Instructions: Please use medication as discussed. Please follow-up with family doctor in the next 24 hours, take photos of area so youre able to closely monitor for changes/worsening redness/swelling. If symptoms worsen tomorrow, finger swelling, hand swelling, increasing redness, fevers-- must immediately return to the ER. Please return to emergency room if the symptoms increase or worsen or for any other concerns. Prescriptions: Amoxicillin/Potassium Clav [Augmentin 875-125 Tablet] 1 tab PO Q12HR 7 Days #14 tab Is patient prescribed a controlled substance at d/c from ED?: No Referrals: Santy Nunez MD [Primary Care Provider] - 1-2 days Time of Disposition: 11:46
== END 2019-11-13 12:15 | disposition home or self-care (01) ==
LOC: EC 11:09
DX: L03.113 Cellulitis of right upper limb (principal); S61.451A Open bite of right hand, initial encounter; H40.9 Unspecified glaucoma; Z23 Encounter for immunization; Z88.1 Allergy status to other antibiotic agents; Z87.891 Personal history of nicotine dependence; W55.01XA Bitten by cat, initial encounter; Y92.009 Unspecified place in unspecified non-institutional (private) residence as the place of occurrence of the external cause
CPT/HCPCS: 90471; 90715; 99283

== ENCOUNTER → 2021-02-02 | Outpatient (CLI) | payer OTHER | END | disposition home or self-care (01) | LOC: LABWHC1 17:03 | PROVIDERS: ATTEND Family Medicine | DX: Z09 Encounter for follow-up examination after completed treatment for conditions other than malignant neoplasm (principal); Z86.16 Personal history of COVID-19 | CPT/HCPCS: 36415; 86769 ==

== ENCOUNTER → 2022-01-24 | Outpatient (CLI) | payer OTHER ==
--- NOTE | 2022-01-25 04:23 | MR ---
EXAMINATION TYPE: MR knee RT wo con DATE OF EXAM: 01/24/2022 COMPARISON: None HISTORY: Right knee pain, hx surgery/injury 2017. Multiplanar multiecho imaging of the right knee performed with no contrast. The joint spaces are fairly normal. There is at least partial tear and probably complete tear of the anterior cruciate ligament. The collateral ligaments are intact. The lateral meniscus is intact. Ther e is horizontal increased signal in the posterior horn medial meniscus. This extends to the inferior surface. There is knee joint effusion. The patella is intact. No focal bone destruction. No evidence of a fracture. IMPRESSION: There is a mild knee joint effusion. There is evidence of tear of the anterior cruciate ligament whic h is probably a complete tear. There is a horizontal tear of the posterior horn medial meniscus extending to the inferior surface.
== END | disposition home or self-care (01) ==
LOC: RADMRIMAIN 20:15
PROVIDERS: ATTEND Family Medicine
DX: S83.511D Sprain of anterior cruciate ligament of right knee, subsequent encounter (principal); X58.XXXD Exposure to other specified factors, subsequent encounter

== ENCOUNTER → 2022-10-16 | Outpatient (CLI) | payer OTHER ==
--- NOTE | 2022-10-17 19:03 | MM ---
Reason for Exam: Screening (asymptomatic). Last mammogram was performed 13 year(s) and 3 month(s) ago. Patient History: Menarche at age 10. First Full-Term at age 21. Hysterectomy at age 31. Risk Values: Aileen 5 year model risk: 0.8%. NCI Lifetime model risk: 8.2%. Prior Study Comparison: 07/28/2009 Bilateral Screening Mammogram, [facility]. Tissue Density: There are scattered fibroglandular densities. Findings: Analyzed By CAD. Pattern appears symmetrical. There is a well-circumscribed nodule within the upper outer mid left breast. Ultrasound is recommended. X line there is an irregular density within the lower inner aspect left breast anterior position. Compression views are recommended. No suspicious mammographic changes within the right breast. Overall Assessment: Incomplete: need additional imaging evaluation, BI-RAD 0 Management: Diagnostic Mammogram of the left breast. Diagnostic Breast Ultrasound of the left breast. A negative mammogram report should not preclude additional follow up of suspicious palpable abnormalities. Patient should continue monthly self breast exam. A clinical breast exam by your physician is recommended on an annual basis and results should be correlated with mammographic findings. Electronically signed and approved by: Rod Bustillo D.O. Radiologis
== END | disposition home or self-care (01) ==
LOC: RADMAMWWP 16:48
PROVIDERS: ATTEND Family Medicine
DX: Z12.31 Encounter for screening mammogram for malignant neoplasm of breast (principal)
CPT/HCPCS: 77067

== ENCOUNTER → 2022-10-22 | Outpatient (CLI) | payer OTHER ==
--- NOTE | 2022-10-22 09:17 | MM ---
Reason for Exam: Additional evaluation requested from abnormal screening. Last screening mammogram was performed less than 1 month ago. Patient History: Menarche at age 10. First Full-Term at age 21. Hysterectomy at age 31. Postmenopausal. Patient has history of breast feeding. Risk Values: Aileen 5 year model risk: 0.8%. NCI Lifetime model risk: 8.2%. Prior Study Comparison: 07/28/2009 Bilateral Screening Mammogram, [facility]. 10/16/2022 Bilateral MG screening mammo w CAD, [facility]. Tissue Density: Left: There are scattered fibroglandular densities. Findings: Analyzed By CAD. There remains a focal asymmetry in the posterior nipple line slightly medial on CC view approximately 3.7 cm from nipple measuring 12 x 7 mm and inferiorly on MLO view 5.1 cm the nipple measuring 9 x 9 mm. An area within the left breast lateral aspect seen on prior measuring 5 mm approximately 7.8 cm the nipple on CC view and posterior nipple line on MLO view 7.3 cm the nipple. Overall Assessment: Incomplete: need additional imaging evaluation, BI-RAD 0 Management: Diagnostic Breast Ultrasound of the left breast. Results were given to the patient verbally at the time of exam. Patient should continue monthly self-breast exams. A clinical breast exam by your physician is recommended on an annual basis. This exam should not preclude additional follow-up of suspicious palpable abnormalities. Note on Aileen scores and lifetime risk: 1. A Aileen score greater than 3% is considered moderate risk. If this is the case, consider specialist referral to assess eligibility for a risk reducing agent. 2. If overall lifetime risk for the development of breast cancer is 20% or higher, the patient may qualify for future screening with alternating mammogram and breast MRI. Electronically signed and approved by: Mando Veras DO
--- NOTE | 2022-10-22 10:40 | USB ---
Reason for Exam: Additional evaluation requested from abnormal screening. Patient History: Menarche at age 10. First Full-Term at age 21. Hysterectomy at age 31. Postmenopausal. Patient has history of breast feeding. Risk Values: Aileen 5 year model risk: 0.8%. NCI Lifetime model risk: 8.2%. Technique: Method: Targeted. Prior Study Comparison: 07/28/2009 Bilateral Screening Mammogram, [facility]. 10/16/2022 Bilateral MG screening mammo w CAD, [facility]. Findings: The upper outer quadrant of the left breast, the lower inner quadrant of the left breast and the retroareolar of the left breast were scanned. Imaged: Ultrasound imaging of: All 4 quadrants, the retroareolar region and axilla. 2 elongated anechoic structures are present within the left breast at 3:00 8 cm from the nipple measuring 5 x 3 x 6 mm and another in close proximity measuring 3 x 2 x 3 mm. Unable to see the lesion in the medial inferior aspect of the left breast.Imaged: Ultrasound imaging of: Area of concern, retroareolar region and axilla. 2 elongated anechoic structures are present within the left breast at 3:00 8 cm from the nipple measuring 5 x 3 x 6 mm and another in close proximity measuring 3 x 2 x 3 mm. Unable to see the lesion in the medial inferior aspect of the left breast. Overall Assessment: Probably benign, BI-RAD 3 Management: Diagnostic Mammogram of the left breast in 6 months. Diagnostic left breast MAMMOGRAM to assure stability of findings of mammogram same day. No ultrasound correlate for finding in the medial inferior aspect of the left breast. Findings within the 3:00 8 cm from nipple region are benign simple cysts. A clinical breast exam by your physician is recommended on an annual basis and results should be correlated with mammographic findings. This exam should not preclude additional follow-up of suspicious palpable abnormalities. Results were given to the patient verbally at the time of exam. Electronically signed and approved by: Mando Veras DO
== END | disposition home or self-care (01) ==
LOC: RADMAMWWP 08:40
PROVIDERS: ATTEND Family Medicine
DX: R92.8 Other abnormal and inconclusive findings on diagnostic imaging of breast (principal); Z78.0 Asymptomatic menopausal state
CPT/HCPCS: 77065; 76642; G0279; 77061

== ENCOUNTER 2023-02-04 18:51 | Emergency (ER) | payer OTHER ==
--- NOTE | 2023-02-04 20:31 | ED ---
General Adult HPI - General Chief complaint: Extremity Injury, Lower Stated complaint: Right knee injury Time Seen by Provider: 02/04/23 19:50 Source: patient, RN notes reviewed, old records reviewed Mode of arrival: wheelchair Limitations: no limitations - History of Present Illness Initial comments: This is a 48-year-old female presents emergency department stating that she has had medial and lateral collateral ligament tears which she's had repaired. Patient states she also has an ACL tear that she supposed to get repaired but she never has and she also has a meniscus tear that she is supposed to have her per but never has. Patient states as of yesterday she twisted her leg felt something give and she has significant pain in the inferior medial aspect of her knee. Patient denies any swelling. Patient denies any direct trauma. Patient states trying to bear any weight causes her increased pain. - Related Data Home Medications Medication Instructions Recorded Confirmed Latanoprost [Xalatan 0.005%] 1 drop BOTH EYES HS 06/17/17 06/17/17 Previous Rx's Medication Instructions Recorded Azithromycin [Zithromax Z-pack (6 0 mg PO DIRECTED #6 tab 06/17/17 tabs)] predniSONE [Deltasone] 20 mg PO BID 5 Days tab 06/17/17 Clindamycin [Cleocin] 450 mg PO Q8HR 10 Days #30 capsule 10/11/18 Sulfamethox-Tmp 800-160Mg [Bactrim 1 each PO Q12HR 5 Days #10 tab 01/14/19 Ds] Amoxicillin/Potassium Clav 1 tab PO Q12HR 7 Days #14 tab 11/13/19 [Augmentin 875-125 Tablet] Allergies Allergy/AdvReac Type Severity Reaction Status Date / Time clindamycin [From Cleocin] Allergy Unknown Verified 02/04/23 19:22 Review of Systems ROS Statement: Those systems with pertinent positive or pertinent negative responses have been documented in the HPI. ROS Other: All systems not noted in ROS Statement are negative. Past Medical History Past Medical History: Eye Disorder, Neurologic Disorder Additional Past Medical History / Comment(s): RT EYE GLAUCOMA,endometreosis,dysmenorrhea(had partial hysterectomy still has ovaries), murmur," leaky valve", palpatations, kidney stone, ibs, stress incont of urine. mono as History of Any Multi-Drug Resistant Organisms: None Reported Past Surgical History: Appendectomy, Cholecystectomy, Hysterectomy, Orthopedic Surgery Additional Past Surgical History / Comment(s): laparoscopy d/t endometreosis, partial hysterectomy and panniculectomy 2010 Past Anesthesia/Blood Transfusion Reactions: Previous Problems w/ Anesthesia Additional Past Anesthesia/Blood Transfusion Reaction / Comment(s): difficulty waking Past Psychological History: Anxiety, Depression Smoking Status: Never smoker Past Alcohol Use History: Occasional Past Drug Use History: None Reported General Exam - General Exam Comments Initial Comments: GENERAL Patient is well-developed and well-nourished. Patient is in mild distress. EYES Patient's pupils are equal and round. Extraocular motion is intact SKIN Unremarkable NEURO The patient is alert and oriented 3 PYSCH Patient has normal interpersonal interactions. MUSCULOSKELETAL Patient has no obvious ligamentous laxity she does have some tenderness on the medial inferior aspect of the knee there is no effusion I can note there is no area of redness or ecchymosis. Limitations: no limitations Course Vital Signs 02/04/23 19:20 Temperature 98.5 F Pulse Rate 77 Respiratory 18 Rate Blood Pressure 136/61 O2 Sat by Pulse 98 Oximetry Medical Decision Making - Medical Decision Making Was pt. sent in by a medical professional or institution (, [place], [employer], urgent care, hospital, or [place] health [place] facility...) When possible be specific @ -No Did you speak to anyone other than the patient for history (EMS, parent, family, police, friend...)? What history was obtained from this source @ -No Did you review nursing and triage notes (agree or disagree)? Why? @ -I reviewed and agree with nursing and triage notes Were old charts reviewed (outside hosp., previous admission, EMS record, old EKG, old radiological studies, urgent care reports/EKG's, [place] health care facility records)? Report findings @ -No old charts were reviewed Differential Diagnosis (chest pain, altered mental status, abdominal pain women, abdominal pain men, vaginal bleeding, weakness, fever, dyspnea, syncope, headache, dizziness, GI bleed, back pain, seizure, CVA, palpatations, mental health, musculoskeletal)? @ -Differential musculoskeletal EKG interpreted by me (3pts min.). @ -As above X-rays interpreted by me (1pt min.). @ -X-ray of the knee shows no acute abnormality CT interpreted by me (1pt min.). @ -None done U/S interpreted by me (1pt. min.). @ -None done What testing was considered but not performed or refused? (CT, X-rays, U/S, labs)? Why? @ -None What meds were considered but not given or refused? Why? @ -None Did you discuss the management of the patient with other professionals (professionals i.e. DrJosi, [place], [employer], lab, RT, psych nurse, nephrology social worker, fire inspector, teacher, sergeant of officers, telephonic case manager)? Give summary @ -No Was smoking cessation discussed for >3mins.? @ -No Was critical care preformed (if so, how long)? @ -No Were there social determinants of health that impacted care today? How? (Homelessness, low income, unemployed, alcoholism, drug addiction, transportation, low edu. Level, literacy, decrease access to med. care, correction, rehab)? @ -No Was there de-escalation of care discussed even if they declined (Discuss DNR or withdrawal of care, Hospice)? DNR status @ -No What co-morbidities impacted this encounter? (DM, HTN, Smoking, COPD, CAD, Cancer, CVA, ARF, Chemo, Hep., AIDS, mental health diagnosis, sleep apnea, morbid obesity)? @ -None Was patient admitted / discharged? Hospital course, mention meds given and route, prescriptions, significant lab abnormalities, going to OR and other pertinent info. @ -Patient's x-ray showed no acute abnormality. Patient already had a knee immobilizer. Patient already has an orthopedic surgeon which she will follow-up with. Undiagnosed new problem with uncertain prognosis? @ -No Drug Therapy requiring intensive monitoring for toxicity (Heparin, Nitro, Insulin, Cardizem)? @ -No Were any procedures done? @ -No Diagnosis/symptom? @ -Right knee strain Acute, or Chronic, or Acute on Chronic? @ -Acute Uncomplicated (without systemic symptoms) or Complicated (systemic symptoms)? @ -Uncomplicated Side effects of treatment? @ -No Exacerbation, Progression, or Severe Exacerbation? @ -No Poses a threat to life or bodily function? How? (Chest pain, [place], [place], pneumonia, PE, COPD, DKA, ARF, appy, cholecystitis, CVA, Diverticulitis, Homicidal, Suicidal, threat to staff... and all critical care pts) @ -No Disposition Clinical Impression: Knee sprain Disposition: HOME SELF-CARE Condition: Good Instructions (If sedation given, give patient instructions): Knee Sprain (ED) Additional Instructions: Patient should follow-up with orthopedic surgeon Is patient prescribed a controlled substance at d/c from ED?: No Referrals: Patrick Perez DO [Primary Care Provider] - 1-2 days Time of Disposition: 20:31
[2023-02-04] MEDS ORDERED: ACET/COD 300 MG/30 MG STARTER PACK 6 TAB BTL PO STA (20:37)
--- NOTE | 2023-02-04 20:45 | XR ---
EXAMINATION TYPE: XR knee complete RT DATE OF EXAM: 02/04/2023 8:29 PM CLINICAL INDICATION:Female, 48 years old with history of Trauma; COMPARISON: None. TECHNIQUE: XR knee complete RT; examined in Frontal, lateral and oblique projections. FINDINGS: No evidence of any acute osseous pathology, soft tissue swelling, or joint effusion is no mehnaz. Mild osteophyte formation of the patella and tibial plateau. IMPRESSION: 1. No acute osseous pathology. 2. Mild tricompartmental osteoarthritic changes.
[2023-02-04 21:01] VITALS: BP 135/76; PULSE 80; RESP 16; TEMP 97.9
== END 2023-02-04 20:53 | disposition home or self-care (01) ==
LOC: EC 18:51
DX: S83.91XA Sprain of unspecified site of right knee, initial encounter (principal); Z86.59 Personal history of other mental and behavioral disorders; Z88.1 Allergy status to other antibiotic agents; Z90.49 Acquired absence of other specified parts of digestive tract; X50.0XXA Overexertion from strenuous movement or load, initial encounter
CPT/HCPCS: 99283

== ENCOUNTER → 2023-03-18 | Outpatient (CLI) | payer OTHER ==
[2023-03-19 03:01] LABS: Anion Gap 9.8 mmol/L (4.00-12.00); Carbon Dioxide 26.2 mmol/L (21.6-31.8); Potassium 4.5 mmol/L (3.5-5.5)
[2023-03-19 03:41] LABS: Basophils # (A) 0.01 X 10*3/uL (0.00-0.10); Basophils % (A) 0.2 %; Eosinophils # (A) 0.15 X 10*3/uL (0.04-0.35); Eosinophils % (A) 2.9 %; HCT 40.3 % (37.2-46.3); HGB 12.9 g/dL (12.0-15.0); Lymphocytes # (A) 0.97 X 10*3/uL (0.90-5.00); Lymphocytes % (A) 18.5 %; MCH 29.1 pg (27.0-32.0); MCV 90.8 FL (80.0-97.0); Mean Platelet Volume 10.6 FL (9.5-12.2); Monocytes # (A) 0.45 X 10*3/uL (0.20-1.00); Monocytes % (A) 8.6 %; NRBC Per 100 WBC 0 X 10*3/uL (0.00-0.01); Neutrophils # (A) 3.65 X 10*3/uL (1.80-7.70); Neutrophils % (A) 69.4 %; Platelet Count 292 X 10*3/uL (140-440); RBC 4.44 X 10*6/uL (4.10-5.20); WBC 5.25 X 10*3/uL (4.50-10.00)
== END | disposition home or self-care (01) ==
LOC: LABPAT 14:10
PROVIDERS: ATTEND Orthopaedic Surgery
DX: Z01.812 Encounter for preprocedural laboratory examination (principal); M23.91 Unspecified internal derangement of right knee; S83.511A Sprain of anterior cruciate ligament of right knee, initial encounter; X58.XXXA Exposure to other specified factors, initial encounter
CPT/HCPCS: 80051; 85025

== ENCOUNTER → 2023-03-19 | Outpatient (CLI) | payer OTHER ==
[~2023-03-19] MED LIST changes: +DOBUTamine DRIP for NUC MED 500 MG in DEXTROSE/WATER 1 250ML.BAG IV PRN; +DOBUTamine DRIP for NUC MED 500 MG/250 ML BAG IV ONE; -HYDROcodone/APAP 5-325MG 1 EACH TAB PO PRN
--- NOTE | 2023-03-20 08:09 | CA ---
Dobutamine Stress Echocardiogram Report Roberta Mejia Age: 48 Gender: F : 1975 Exam Date: 03/19/2023 11:38 Exam Location: [facility] Ordering Physician: Maulik Loo MD ([id number]) Referring Physician: Maulik Loo MD ([id number]) Ornamental Metal Erector Apprentice: Cee Owen RDCS Technologist: Ht (in): 70 Wt (lb): 224 Procedure CPT: Indication: Z01.818 ENCOUNTER FOR OTHER PREPROCEDURAL EXAMINAT ICD-9 Codes: Rhythm: Patient History: CP, JAMES, PALP, PREDIABETIC, Cardiac Medications: N/A Medications in past 24 hours: Contrast: Total Dose (mL): Stress Results Protocol: Dobutamine Peak Dose (???g/kg/min): 30 Duration (min:sec): Atropine:(mg) None Target HR: 145 Double Product: [id number] Resting HR: 63 Resting BP: 107 / 55 Peak HR: 147 Peak BP: 199 / 44 Max Predicted HR: 170 86 % Max Predicted HR Stress Summary: BP Response: Reason for Termination: Exceeded target heart rate (85% max predicted) Cardiac Symptoms: Test terminated after reaching target heart rate (85% max predicted) ECG Analysis Resting EKG: Stress EKG: Arrhythmia: Echo Analysis Base Echo Analysis: Low Echo Anaylsis: Peak Echo Analysis: Recovery Echo: MEASUREMENTS (Male/Female) Normal Values CONCLUSIONS Baseline EKG revealed a normal sinus rhythm with minor nonspecific ST abnormality. With the dobutamine administration as per protocol the heart rate went up from 63-147 bpm and the blood pressure changed from 107/55-199/44. Patient did not have any significant symptoms and EKG did not reveal any new ST segment changes. By EKG criteria this is a unremarkable dobutamine stress test. There was no significant arrhythmia. Baseline echo images revealed normal wall motion wall thickening of all segments. With dobutamine administration as per protocol there was progressive increase in contractility noted of all segments. This suggests no evidence of ischemia. Final impression: #1 by EKG criteria this is a unremarkable dobutamine stress test with minor resting EKG abnormalities. #2 normal dobutamine stress echocardiogram without evidence of ischemia Dr. Gabriela Mccall MD (Electronically Signed) Final Date: 20 March 2023 08:08
== END | disposition home or self-care (01) ==
LOC: RADNMMAIN 10:59
PROVIDERS: ATTEND Internal Medicine Cardiovascular Disease
DX: Z01.818 Encounter for other preprocedural examination (principal)
CPT/HCPCS: 93351

== ENCOUNTER 2023-03-21 12:19 | Day surgery (SDC) | payer OTHER ==
[2023-03-18 10:14] VITALS: BMI 31.5
--- NOTE | 2023-03-21 02:01 | HP ---
HISTORY AND PHYSICAL Surgery is scheduled for 03/21/2023. Roberta Mejia is a 48-year-old patient seen with right knee pain along with instability. She was found to have a medial meniscal tear and anterior cruciate ligament tear. After discussing treatment options, she is status post right knee arthroscopy to include allograft ACL reconstruction. Consent was obtained. Medical clearance was provided. PAST MEDICAL HISTORY: Cardiovascular disease. PAST SURGICAL HISTORY: Appendectomy, cholecystectomy, hysterectomy. DAILY MEDICATIONS: None. SOCIAL HISTORY: She denies tobacco use. PHYSICAL EVALUATION OF THE RIGHT KNEE: Range of motion is -3/4 to 80 degrees. Moderate effusion. Tenderness, medial joint line. Positive medial Gabriel's. +2 to 3 Mick, 1 point fell. Positive pivot shift. Hip rotation without pain. Distal neurovascular exam intact. IMAGING STUDIES: Radiographs of the right knee revealed mild osteoarthritis. MRI of right knee revealed a medial meniscal tear and anterior cruciate ligament tear. IMPRESSION: Internal derangement of right knee with medial meniscal tear, anterior cruciate ligament tear. PLAN: Right knee arthroscopy with partial medial meniscectomy, allograft ACL reconstruction. MMODL / IJN: [id number] /
[~2023-03-21 12:19] MED LIST changes: +DEXAMETHASONE SOD PHOSPHATE 4 MG/ML 1 ML VIAL IV ONE; -DOBUTamine DRIP for NUC MED 500 MG in DEXTROSE/WATER 1 250ML.BAG IV PRN; -DOBUTamine DRIP for NUC MED 500 MG/250 ML BAG IV ONE; +LACTATED RINGERS 1,000 ML IV SCH; +LIDOCAINE 1% (10MG/ML) FOR IV START INTRADERMA PRN; +droPERidol 5 MG/2 ML VIAL IVP ONE
[2023-03-21 13:28] LABS: Glucose,Whole Blood 89 mg/dL (70-110)
[2023-03-21] MEDS: ONDANSETRON 4 MG/2 ML VIAL IVP ONE ×2 (13:34→17:40)
[2023-03-21] MEDS ORDERED: MIDAZOLAM 2 MG/2 ML VIAL IVP ONE (13:56)
[2023-03-21] MEDS ORDERED: fentaNYL (PF) 50 MCG/ML 2 ML AMP IVP ONE (13:56)
[2023-03-21] MEDS ORDERED: LIDOCAINE 1% INJ 10MG/ML (20 ML MDV) ONE (14:53)
[2023-03-21] MEDS ORDERED: SUCCINYLCHOLINE CHLORIDE 200 MG/10 ML VIAL IV ONE (14:53)
[2023-03-21] MEDS ORDERED: PROPOFOL 10 MG/ML 20 ML VIAL IV ONE (14:53)
[2023-03-21] MEDS ORDERED: fentaNYL (PF) 50 MCG/ML 2 ML AMP ONE (14:53)
[2023-03-21] MEDS ORDERED: MIDAZOLAM 2 MG/2 ML VIAL ONE (14:53)
[2023-03-21] MEDS ORDERED: LACTATED RINGERS 1,000 ML IV ONE (16:23)
--- NOTE | 2023-03-21 16:49 | P.OP ---
Date of Procedure: 03/21/23 Preoperative Diagnosis: Internal derangement right knee Postoperative Diagnosis: 1. Anterior cruciate ligament tear right knee 2. Medial and lateral meniscal tears right knee 3. Reactive synovitis medial, lateral and suprapatellar compartments right knee Procedure(s) Performed: 1. Arthroscopic allograft anterior cruciate ligament reconstruction right knee 2. Arthroscopic partial medial and lateral meniscectomy right knee 3. Arthroscopic partial synovectomy medial, lateral and suprapatellar compartments right knee Implants: 2Arthrex Endobuttons 1Arthrex 4.75 swivel lock anchor Anesthesia: GETA, regional (Adductor canal block) Surgeon: Fletcher Joseph Receptionist/Telephone Operator #1: Pravin Bejarano Estimated Blood Loss (ml): 12 Pathology: none sent Condition: stable Disposition: PACU Indications for Procedure: 48-year-old patient seen with progressive right knee pain and instability consistent with anterior cruciate ligament tear as well as meniscal tear. We discussed options. She elected to proceed with right knee arthroscopy to include allograft ACL reconstruction. Operative Findings: See description of procedure Description of Procedure: Patient was taken to the operative suite after having an adductor canal block performed by the department of anesthesia for postoperative pain management. Patient underwent a general anesthetic by the department of anesthesia. Patient was given preoperative antibiotics. The right lower extremity was placed in a well-padded arthroscopic leg mcmahan. The right leg was prepped and draped in the normal sterile orthopedic fashion. A lateral parapatellar and suprapatellar incision was made. Trochars were inserted. Arthroscopy was initiated. Suprapatellar pouch revealed diffuse thick reactive synovitis. The patellof emoral joint appeared to articulate congruently. There was no significant chondromalacia present. The scope was guided into the medial gutter. No loose bodies or plica were identified. The scope was then guided into the medial compartment. A medial parapatellar incision was made. Trocar inserted followed by probe. There was a complex tear involving the posterior horn medial meniscus. There was mild grade 1 chondromalacia along the very anterior aspect of the medial femoral condyle there was thick reactive synovitis anteriorly. Scope and probe were then guided into the intercondylar notch. There was complete ACL tear. The posterior cruciate ligament was stable. At this point we opened up a allograft and Terry MAC began preparing that allograft for implantation. I guided the scope back into the medial compartment. I performed a partial medial meniscectomy getting down to stable meniscal tissue. I performed a partial synovectomy decompressing the reactive synovitis anteriorly. The residual meniscus was stable. There was good decompression of the synovitis. The scope and probe were then guided into lateral compartment. The lateral meniscus revealed a tear along the midbody area. There was no significant chondromalacia present in the lateral compartment. There was some reactive synovitis anteriorly. I performed a partial lateral meniscectomy. I performed a partial synovectomy. The residual meniscus was probed and was found to be stable. There was good decompression of the synovitis. I now guided the scope back into the intercondylar notch. I introduced motorize shaver and debrided out any remnants of the torn anterior cruciate ligament. The intercondylar notch was very tight. I performed a notchplasty. The graft was ready for implantation. Terry MAC now assisted in helping me create the femoral and tibial tunnels. We now brought the graft to the operative field. We first shuttled the graft into our femoral tunnel visualizing Endobutton flipping along the outer cortex. We shuttled 20 mm of graft into the femoral side of our tunnel. I now shuttled the tibial side the graft into our tibial tunnel. I made a 2 cm medial incision along the proximal tibia for less than over Endobutton. We now tensiond the graft appropriately. I now put her leg into full extension. We shuttled the tibial side of the graft and secured that to our tibial Endobutton. We now drilled a hole in the tibia for insertion of an anchor for our internal brace. We tapped that predrilled hole. I now passed the internal brace suture through a Arthrex 4.75 swivel lock anchor. I placed that into her pre-dilled hole and held appropriate tension through our internal brace while Terry MAC introduced the anchor with good fixation noted. All residual suture limbs were now clipped. We now held the knee into full extension and again tensioned our femoral side and then clipped the residual sutures as well. We now reintroduced the arthroscope into the joint. The anterior cruciate graft appeared very well-positioned. Intraoperatively we had excellent stability. The scope was in guided back into the suprapatellar compartment. I introduced a motorized shaver into the suprapatellar compartment. I performed a partial synovectomy. Shaver was removed. There was good decompression of the synovitis. I took one more look around the entire knee, no residual debris. Instruments were now removed from the joint. We repaired all portal sites with nylon suture. The mini medial incision was repaired with 2-0 Vicryl followed by nylon suture. Sterile dressings were applied. The patient was placed into a long soft immobilizer. No tourniquet was utilized. The patient was awakened, transferred to a bed and taken to recovery stable satisfactory condition. Terry MAC assisted in all aspects of this procedure.
[2023-03-21] MEDS: HYDROmorphone 0.5 MG/0.5 ML SYRINGE IVP PRN ×2 (17:02→17:40)
[2023-03-21] MEDS ORDERED: MEPERIDINE 50 MG/ML SYRINGE IVP ONE (17:08)
[2023-03-21 17:18] VITALS: RESP 16; TEMP 97
[2023-03-21] MEDS ORDERED: KETOROLAC 15 MG/ML 1 ML VIAL IVP ONE (17:29)
--- NOTE | 2023-03-21 18:46 | P.ANPRN ---
Procedure Note - Anesthesia - Nerve Block Performed Right Adductor Canal Single Time Out Performed: Yes ([id number]) Date of Procedure: 03/21/23 Procedure Start Time: 13:57 Procedure Stop Time: 14:02 Location of Patient: PreOp Indication: Acute Post-Operative Pain, Requested by Surgeon Specifically requested for management of pain by DrJosi: Fletcher Joseph Sedation Type: Sedate with meaningful contact maintained Preparation: Sterile Prep Position: Supine Catheter: None Needle Types: Pajunk Needle Gauge: 21 Ultrasound used to visualize needle placement: Yes Ultrasound used to observe medication spread: Yes Injectate: 0.5% Ropivacaine (see comment for volume) (30cc) Blood Aspirated: No Pain Paresthesia on Injection Noted: No Resistance on Injection: Normal Image Stored and Saved: Yes Events: Uneventful and Well Tolerated
[2023-03-21 18:49] VITALS: BP 114/63; PULSE 68
== END 2023-03-21 19:04 | disposition home or self-care (01) ==
LOC: OR 12:19
PROVIDERS: ATTEND Orthopaedic Surgery
DX: S83.511A Sprain of anterior cruciate ligament of right knee, initial encounter (principal); S83.281A Other tear of lateral meniscus, current injury, right knee, initial encounter; M65.861 Other synovitis and tenosynovitis, right lower leg; I25.10 Atherosclerotic heart disease of native coronary artery without angina pectoris; Z90.710 Acquired absence of both cervix and uterus; Z90.49 Acquired absence of other specified parts of digestive tract; X58.XXXA Exposure to other specified factors, initial encounter
CPT/HCPCS: 29888; 29880; 64448; J2250; J1100; J2175; J0690; J2405; J3010; J1885; J1170

== ENCOUNTER → 2023-05-02 | Outpatient (CLI) | payer OTHER ==
--- NOTE | 2023-05-03 10:13 | MM ---
Reason for Exam: Follow-up at short interval from prior study. Last screening mammogram was performed 6 month(s) ago. Patient History: Menarche at age 10. First Full-Term at age 21. Hysterectomy at age 31. Postmenopausal. Patient has history of breast feeding. Risk Values: Aileen 5 year model risk: 0.9%. NCI Lifetime model risk: 8.0%. Prior Study Comparison: 07/28/2009 Bilateral Screening Mammogram, [facility]. 10/16/2022 Bilateral MG screening mammo w CAD, [facility]. 10/22/2022 Left MG 3D work up w/cad LT, [facility]. Tissue Density: Left: There are scattered fibroglandular densities. Findings: Analyzed By CAD. The 6:00 and upper outer quadrant focal asymmetries remain unchanged. The lateral nodularity is stable for 6 months. Additional short interval follow-up recommended. Overall Assessment: Probably benign, BI-RAD 3 Management: Diagnostic Mammogram of both breasts in 6 months. Total one-year follow-up left breast and annual exam of the right breast.. Results were given to the patient verbally at the time of exam. Patient should continue monthly self-breast exams. A clinical breast exam by your physician is recommended on an annual basis. This exam should not preclude additional follow-up of suspicious palpable abnormalities. Note on Ailene scores and lifetime risk: 1. A Aileen score greater than 3% is considered moderate risk. If this is the case, consider specialist referral to assess eligibility for a risk reducing agent. 2. If overall lifetime risk for the development of breast cancer is 20% or higher, the patient may qualify for future screening with alternating mammogram and breast MRI. Electronically signed and approved by: Aries Brown M.D. Radiologist
== END | disposition home or self-care (01) ==
LOC: RADMAMWWP 08:09
PROVIDERS: ATTEND Family Medicine
DX: L98.8 Other specified disorders of the skin and subcutaneous tissue (principal); R92.322 Mammographic fibroglandular density, left breast; Z78.0 Asymptomatic menopausal state
CPT/HCPCS: 77065; G0279; 77061

== ENCOUNTER 2023-11-11 17:37 | Observation (INO) | payer OTHER ==
--- NOTE | 2023-11-11 18:13 | ED ---
General Adult HPI - General Chief complaint: Weakness Stated complaint: weakness Time Seen by Provider: 11/11/23 17:39 Source: patient, EMS Mode of arrival: EMS - History of Present Illness Initial comments: Dictation was produced using [employer] dictation software. please excuse any g rammatical, word or spelling errors. Chief Complaint: 48-year-old female presents emergency department with episode of dizziness History of Present Illness: Patient is a 48-year-old female presents emergency department episode of dizziness. 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 She was outside scrubbing it when all of a sudden she started to feel dizzy. States that she felt so dizzy that she had to lower self to the ground. Patient also reports associated left hand tingling and left foot tingling. Patient Nuys any pain complaints. She apparently had pretty high blood pressure upon initial EMS evaluation. Patient has a history of stroke. Denies any major comorbidities. The ROS documented in this emergency department record has been reviewed and confirmed by me. Those systems with pertinent positive or negative responses have been documented in the HPI. All other systems are other negative and/or noncontributory. - Related Data Previous Rx's Medication Instructions Recorded HYDROcodone/APAP 7.5-325MG [[place] 1 each PO Q6HR PRN #28 tab 03/21/23 7.5] Ibuprofen [Motrin] 800 mg PO Q8H PRN #40 tab 03/21/23 Allergies Allergy/AdvReac Type Severity Reaction Status Date / Time clindamycin [From Cleocin] Allergy Unknown Verified 03/21/23 12:55 venlafaxine [From Effexor] Allergy BLACKED OUT Verified 03/21/23 12:55 Review of Systems ROS Statement: Those systems with pertinent positive or pertinent negative responses have been documented in the HPI. ROS Other: All systems not noted in ROS Statement are negative. Past Medical History Past Medical History: Deep Vein Thrombosis (DVT), Eye Disorder, Neurologic Disorder Additional Past Medical History / Comment(s): RT EYE GLAUCOMA,endometreosis, murmur," leaky valve", palpatations, kidney stone, ibs, stress incont of urine. DVT RLE, History of Any Multi-Drug Resistant Organisms: None Reported Past Surgical History: Appendectomy, Cholecystectomy, Hysterectomy, Orthopedic Surgery Additional Past Surgical History / Comment(s): laparoscopy d/t endometreosis, partial hysterectomy and panniculectomy 2010, Past Anesthesia/Blood Transfusion Reactions: Previous Problems w/ Anesthesia Additional Past Anesthesia/Blood Transfusion Reaction / Comment(s): difficulty waking Past Psychological History: Anxiety, Depression Smoking Status: Never smoker Past Alcohol Use History: None Reported Past Drug Use History: None Reported - Past Family History Mother Family Medical History: No Reported History General Exam - General Exam Comments Initial Comments: PHYSICAL EXAM: General Impression: Alert and oriented x3, not in acute distress HEENT: Normocephalic atraumatic, extra-ocular movements intact, pupils equal and reactive to light bilaterally, mucous membranes moist. Cardiovascular: Heart regular rate and rhythm Chest: Able to complete full sentences, no retractions, no tachypnea Abdomen: abdomen soft, non-tender, non-distended, no organomegaly Musculoskeletal: Pulses present and equal in all extremities, no peripheral edema Motor: no focal deficits noted Neurological: CN II-XII grossly intact, no focal motor or sensory deficits noted Skin: Intact with no visualized rashes Psych: Normal affect and mood Course Vital Signs 11/11/23 11/11/23 17:39 19:49 Temperature 98.3 F Pulse Rate 79 66 Respiratory 16 16 Rate Blood Pressure 150/84 133/79 O2 Sat by Pulse 97 99 Oximetry EKG Findings - EKG Comments: EKG Findings:: My EKG interpretation: Ventricular rate 76, sinus rhythm,. 172, QRS 110, QTc 460. No MO prolongation, no QTC prolongation, no ST or T-wave changes noted. Overall, this EKG is unremarkable Medical Decision Making - Medical Decision Making Was pt. sent in by a medical professional or institution (, PA, [employer], urgent care, hospital, or [facility]...) When possible be specific @ -No Did you speak to anyone other than the patient for history (EMS, parent, family, police, friend...)? What history was obtained from this source @ -Some history obtained from EMS as described above Did you review nursing and triage notes (agree or disagree)? Why? @ -I reviewed and agree with nursing and triage notes Were old charts reviewed (outside hosp., previous admission, EMS record, old EKG, old radiological studies, urgent care reports/EKG's, [facility] records)? Report findings @ -No old charts were reviewed Differential Diagnosis (chest pain, altered mental status, abdominal pain women, abdominal pain men, vaginal bleeding, musculoskeletal, weakness, fever, dyspnea, syncope, headache, dizziness, GI bleed, back pain, seizure, CVA, palpatations, mental health)? @ - Differential CVA: Ischemic stroke, hemorrhagic stroke, brain tumor, atypical migraine, Wernicke's encephalopathy, seizure, multiple sclerosis, meningitis, encephalitis, hypog lycemia, Guillain-Unger, electrolytes disturbance, myasthenia gravis.... This is not meant to be an all-inclusive list EKG interpreted by me (3pts min.). @ -See above X-rays interpreted by me (1pt min.). @ -None done CT interpreted by me (1pt min.). @ -CT scan the brain shows no acute processes U/S interpreted by me (1pt. min.). @ -None done What testing was considered but not performed or refused? (CT, X-rays, U/S, labs)? Why? @ -None What meds were considered but not given or refused? Why? @ -None Was smoking cessation discussed for >3mins.? @ -No Were there social determinants of health that impacted care today? How? (Homelessness, low income, unemployed, alcoholism, drug addiction, transportation, low edu. Level, literacy, decrease access to med. care, detention, rehab)? @ -No Was there de-escalation of care discussed even if they declined (Discuss DNR or withdrawal of care, Hospice)? DNR status @ -No What co-morbidities impacted this encounter? (DM, HTN, Smoking, COPD, CAD, Ca ncer, CVA, ARF, Chemo, Hep., AIDS, mental health diagnosis, sleep apnea, morbid obesity)? @ -None Was patient admitted / discharged? Hospital course, mention meds given and route, prescriptions, significant lab abnormalities, going to OR and other pertinent info. @ -48-year-old female presents emergency department for acute onset vertigo. She did report to me that she has family history of strokes. Vital signs upon arrival are within acceptable limits. Patient in distress secondary to vertigo at the bedside initial evaluation. She given IV fluids and Reglan. She did report associated symptoms of left hand and left lower extremity paresthesias raising the suspicion of CVA/TIA. Patient reported some symptom improvement however still symptomatic. Patient given aspirin will be admitted with consultation to neurology. Case discussed with Fiorella for hospital admission. Patient not a candidate for alteplase or thrombectomy due to risk outweigh the benefits. Did you discuss the management of the patient with other professionals (professionals i.e. , PA, [employer], lab, RT, psych nurse, nursing home social worker, fitter welder, teacher, radio electronics officer, ed case manager)? Give summary @ -See above Was critical care preformed (if so, how long)? @ -No Undiagnosed new problem with uncertain prognosis? @ -No Drug Therapy requiring intensive monitoring for toxicity (Heparin, Nitro, Insulin, Cardizem)? @ -No Were any procedures done? @ -No Diagnosis/symptom? Acute, or Chronic, or Acute on Chronic? Uncomplicated (without systemic symptoms) or Complicated (systemic symptoms)? @ -Vertigo Side effects of treatment? @ -No Exacerbation, Progression, or Severe Exacerbation? @ -No Poses a threat to life or bodily function? How? (Chest pain, [place], [place], pneumonia, PE, COPD, DKA, ARF, appy, cholecystitis, CVA, Diverticulitis, Homicidal, Suicidal, threat to staff... and all critical care pts) @ -No - Lab Data Result diagrams: 11/11/23 18:14 11/11/23 18:14 Lab Results 11/11/23 11/11/23 Range/Units 18:14 18:14 WBC 6.6 (3.8-10.6) k/uL RBC 3.46 L (3.80-5.40) m/uL Hgb 10.0 L (11.4-16.0) gm/dL Hct 31.1 L (34.0-46.0) % MCV 89.8 (80.0-100.0) fL MCH 29.0 (25.0-35.0) pg MCHC 32.3 (31.0-37.0) g/dL RDW 12.9 (11.5-15.5) % Plt Count 307 (150-450) k/uL MPV 8.4 Neutrophils % 64 % Lymphocytes % 25 % Monocytes % 5 % Eosinophils % 3 % Basophils % 1 % Neutrophils # 4.2 (1.3-7.7) k/uL Lymphocytes # 1.7 (1.0-4.8) k/uL Monocytes # 0.4 (0-1.0) k/uL Eosinophils # 0.2 (0-0.7) k/uL Basophils # 0.0 (0-0.2) k/uL Sodium 141 (137-145) mmol/L Potassium 3.5 (3.5-5.1) mmol/L Chloride 109 H (98-107) mmol/L Carbon Dioxide 25 (22-30) mmol/L Anion Gap 7 mmol/L BUN 12 (7-17) mg/dL Creatinine 0.80 (0.52-1.04) mg/dL Est GFR (CKD-EPI)AfAm >90 (>60 ml/min/1.73 sqM) Est GFR (CKD-EPI)NonAf 87 (>60 ml/min/1.73 sqM) Glucose 136 H (74-99) mg/dL Calcium 9.3 (8.4-10.2) mg/dL Magnesium 1.9 (1.6-2.3) mg/dL Total Bilirubin 0.3 (0.2-1.3) mg/dL AST 23 (14-36) U/L ALT 20 (4-34) U/L Alkaline Phosphatase 57 (38-126) U/L Total Protein 6.4 (6.3-8.2) g/dL Albumin 3.9 (3.5-5.0) g/dL Disposition Clinical Impression: Vertigo Disposition: ADMITTED IP TO THIS [facility] Condition: Fair Referrals: None,Stated [REFERRING] - 1-2 days Decision Time: 20:07
[2023-11-11] MEDS: SODIUM CHLORIDE 0.9% 1,000 ML IV STA (18:32)
[2023-11-11] MEDS: METOCLOPRAMIDE 5 MG/ML 2 ML VIAL IVP STA (18:36)
[2023-11-11 18:52] LABS: Basophils % (A) 1 %; Eosinophils # (A) 0.2 k/uL (0-0.7); Eosinophils % (A) 3 %; HCT 31.1 % (34.0-46.0); Lymphocytes # (A) 1.7 k/uL (1.0-4.8); Lymphocytes % (A) 25 %; MCHC 32.3 g/dL (31.0-37.0); MCV 89.8 fL (80.0-100.0); Mean Platelet Volume 8.4; Monocytes # (A) 0.4 k/uL (0-1.0); Monocytes % (A) 5 %; Neutrophils # (A) 4.2 k/uL (1.3-7.7); Neutrophils % (A) 64 %; Platelet Count 307 k/uL (150-450); RBC 3.46 m/uL (3.80-5.40); RDW 12.9 % (11.5-15.5); WBC 6.6 k/uL (3.8-10.6)
[2023-11-11 19:17] LABS: ALT 20 U/L (4-34); AST 23 U/L (14-36); African American GFR (CKD) >90 (>60 ml/min/1.73 sqM); Albumin 3.9 g/dL (3.5-5.0); Alkaline Phosphatase 57 U/L (38-126); Anion Gap 7 mmol/L; Blood Urea Nitrogen 12 mg/dL (7-17); Calcium 9.3 mg/dL (8.4-10.2); Carbon Dioxide 25 mmol/L (22-30); Chloride 109 mmol/L (98-107); Glucose 136 mg/dL (74-99); Magnesium 1.9 mg/dL (1.6-2.3); Non-African American GFR(CKD) 87 (>60 ml/min/1.73 sqM); Potassium 3.5 mmol/L (3.5-5.1); Sodium 141 mmol/L (137-145); Total Bilirubin 0.3 mg/dL (0.2-1.3); Total Protein 6.4 g/dL (6.3-8.2)
--- NOTE | 2023-11-11 19:33 | CT ---
EXAMINATION TYPE: CT brain wo con DATE OF EXAM: 11/11/2023 COMPARISON: None INDICATION: DIZZINESS DLP: 1142.4 mGycm, Automated exposure control for dose reduction was used. CONTRAST: None CT of the brain is performed utilizing 3 mm thick sections through the posterior fossa and 3 mm thick sections through the remaining calvarium. Study is performed within 24 hours of arrival to the hosp ital. No abnormal hyperdensity is present to suggest an acute intracranial hemorrhage. No mass lesion is evident. No acute infarcts are evident. Ventricles and sulci are appropriate for the patient age. There is are retention cysts within the left maxillary sinus.. Paranasal sinuses and mastoid air cell s within the [id number] are otherwise clear. IMPRESSION: 1. No acute intracranial process. Follow-up MRI can be performed as clinically indicated.
[2023-11-11] MEDS ORDERED: NALOXONE 0.4 MG/ML 1 ML VIAL IV PRN (19:53)
[2023-11-11] MEDS: ASPIRIN 81 MG PO STA (20:05)
[2023-11-11] MEDS: SODIUM CHLORIDE 0.9% 1,000 ML IV SCH (21:42)
[2023-11-12] MEDS: IBUPROFEN 400 MG TAB PO PRN (03:35)
[2023-11-12] MEDS: ASPIRIN 325 MG TAB PO SCH (11:01)
--- NOTE | 2023-11-12 11:53 | CT ---
EXAMINATION TYPE: CT angio head neck CT DLP: 844.9 mGycm, Automated exposure control for dose reduction was used. DATE OF EXAM: 11/12/2023 11:43 AM COMPARISON: CT brain 11/11/2023, MR brain 06/29/2022. CLINICAL INDICATION:Female, 48 years old with history of Vertigo, diplopia, LE, r/o occl, dissection, aneur; PHH, Vertigo, diplopia, LE, r/o occl, dissection, aneur TECHNIQUE: Axially acquired helical CT angiogram of the head and neck was obtained with contrast util izing 75 cc of Isovue-370 administered intravenously. Axial images are supplemented with 3D reconstru ctions which were post-processed at an independent workstation. NASCET criteria used. FINDINGS: CTA HEAD: No evidence of acute intracranial hemorrhage, mass effect, or midline shift. The ventricles, sulci, a nd cisterns are unremarkable. The visualized portions of the internal carotid arteries, middle cerebral arteries, anterior cerebral arteries, and posterior cerebral arteries are patent. The basilar and vertebral arteries are patent. 1.7 cm polyp versus mucous retention cyst within the left maxillary sinus additional smaller one with in the left maxillary sinus measuring 1.2 cm. CTA NECK: Right Carotid System: The common carotid artery and external carotid artery are patent. The carotid bifurcation demonstrate s no evidence of hemodynamically significant stenosis. The remaining portions of the internal carotid artery demonstrate normal size without significant narrowing. Left Carotid System: The common carotid artery and external carotid artery are patent. The carotid bifurcation demonstrate s no evidence of hemodynamically significant stenosis. The remaining portions of the internal carotid artery demonstrate normal size without significant narrowing. Vertebral arteries are patent without evidence hemodynamically significant stenosis. Left vertebral a rtery is dominant. There is a three-vessel aortic arch. The origins of the great vessels are patent. No evidence of hemo dynamically significant stenosis. 1.3 cm hypodense nodule within the right thyroid lobe. IMPRESSION: 1. No evidence of dissection of the cervical internal carotid arteries or vertebral arteries or any e vidence of significant stenosis at the carotid bifurcations. 2. No evidence of high-grade stenosis or intracranial aneurysm.
--- NOTE | 2023-11-12 14:20 | P.CNNES ---
History of Present Illness Consult date: 11/12/23 Requesting physician: Sanjay Garibay Reason for Consult: cva/tia History of Present Illness: Patient is a 48-year-old right-handed female came to the hospital by ambulance yesterday at 5:37 PM for vertigo. Patient states that yesterday she woke up at around 9 AM and then walked outside until 2:30 PM. She came inside and then came back outside at around 4:15 PM. She was just outside for 10 minutes, washi ng the pool, when she started feeling dizzy, like will pass out. She came inside, bouncing against the garcia, fell on the edge of the table and then sat on the chair. She could not pick her head, felt heavy and the room was spinning and she started feeling nauseous. She felt as if the gravity was pulling her head down. Her heart was pounding and she kept her eyes closed. As she kept on spinning, she called the EMS and was brought to the hospital. Patient claims that her initial blood pressure was 230/130 although the EMS flowsheet does not mention this blood pressure. Patient states that she does not remember much of the right of the ambulance. She felt "out of it". While she was in the hallway in the ER, she felt tingling sensation in the left arm and left leg and left side of the face. She also noticed a bad headache involving the left frontal temporal region. There was no slurred speech, facial droop or visual disturbance. The tingling lasted for about an hour and then went away. As per EMS flowsheet when they arrived, patient was complaining of acute dizziness and weakness. Patient mentioned that she was cleaning outside for 10 minutes when she became weak and nauseous. Patient denied any loss of consciousness. No vomiting. Patient was alert and orient x 4 but slow to respond. Patient denied any chest pain shortness of breath or abdominal pain. Patient noted nausea when she moves. Patient was diaphoretic. Patient's vitals at the scene was blood pressure 178/83, pulse rate 86, respirations 16 saturation 95%. Blood sugar 118. Blood test shows normal WBC, hemoglobin 10.0, platelets are normal. CMP is normal. EKG showed sinus rhythm with sinus arrhythmia. CT head showed no acute intracranial process. I personally reviewed CT head, agree with the findings. Visualized paranasal sinuses are mostly clear. Couple polyps of the left maxillary sinuses noticed. External auditory canals are clear. Home medications include OTC menopause supplement. Patient states that she takes aspirin 81 mg only about twice a week. Patient states that for last couple years, she has been waking up sometimes with diplopia, that last for about few hours and then goes away. It used to be sporadic, but has been getting more frequent and now it is about 5 out of 7 days of the week that she wakes up with diplopia. When she closes her eyes, she notices flashing lights sometimes. Patient states that she had about 2 or 3 episodes of "inner ear infection" in her lifetime. Last 1 was about "years ago". Never had something like this. Patient has hysterectomy at age 36. Still has ovaries. She is undergoing menopause. Patient states that she was diagnosed with lupus anticoagulant in the past. It is positive off and on and the last time it was checked was in 2017 when it was negative. She also had a DVT in her leg in the past for which she was on blood thinners for 6-week and then stopped. Patient denies any history of head trauma. Patient states that she has been under too much stress because she owns 2 businesses, and was arranging a graduation alliance party for her son. Patient states her maternal ankle of ruptured cerebral aneurysm at age 68. Review of Systems Constitutional: Reports chills, Reports fever (low grade) Eyes: bilateral blurred vision, bilateral diplopia, denies pain Ears: bilateral: tinnitus (3 months), deny: decreased hearing, earache Ears, nose, mouth and throat: Reports headache, Reports vertigo, Denies nasal discharge, Denies sore throat Cardiovascular: Reports chest pain, Reports dyspnea on exertion, Denies shortness of breath Respiratory: Denies cough, Denies excessive sputum Gastrointestinal: Reports nausea, Denies abdominal pain, Denies diarrhea, Denies dyspepsia, Denies vomiting Genitourinary: Denies dysuria, Denies mixed incontinence Musculoskeletal: Reports neck pain (muscular), Denies low back pain, Denies myalgias Integumentary: Denies pruritus, Denies rash Neurological: Reports as per HPI Psychiatric: Reports depression, Denies anxiety Past Medical History Past Medical History: Deep Vein Thrombosis (DVT), Eye Disorder, Neurologic Disorder Additional Past Medical History / Comment(s): RT EYE GLAUCOMA,endometreosis, murmur," leaky valve", palpatations, kidney stone, ibs, stress incont of urine. DVT RLE, History of Any Multi-Drug Resistant Organisms: None Reported Past Surgical History: Appendectomy, Cholecystectomy, Hysterectomy, Orthopedic Surgery Additional Past Surgical History / Comment(s): laparoscopy d/t endometreosis, partial hysterectomy and panniculectomy 2010, Past Anesthesia/Blood Transfusion Reactions: Previous Problems w/ Anesthesia Additional Past Anesthesia/Blood Transfusion Reaction / Comment(s): difficulty waking Past Psychological History: Anxiety, Depression Smoking Status: Never smoker Past Alcohol Use History: None Reported Past Drug Use History: None Reported - Past Family History Mother Family Medical History: No Reported History Medications and Allergies Home Medications Medication Instructions Recorded Confirmed Type Otc Menopause Supplement 1 tab PO DAILY 11/11/23 11/11/23 History Allergies Allergy/AdvReac Type Severity Reaction Status Date / Time clindamycin [From Cleocin] Allergy Unknown Verified 11/11/23 21:08 venlafaxine [From Effexor] AdvReac BLACKED OUT Verified 11/11/23 21:08 Physical Examination - Vital Signs Vital Signs: Vital Signs Temp Pulse Pulse Resp BP Pulse Ox 11/12/23 10:02 99.0 F 69 17 131/74 99 11/12/23 09:03 99.0 F 63 17 150/88 98 11/12/23 06:28 66 11/12/23 06:00 66 16 119/76 98 11/12/23 04:00 65 16 136/70 98 11/12/23 02:58 65 16 130/89 98 11/12/23 02:00 67 18 98 11/12/23 01:00 70 16 97 11/12/23 00:00 71 18 136/84 98 11/11/23 21:44 65 16 125/80 98 11/11/23 19:49 66 16 133/79 99 11/11/23 17:39 98.3 F 79 16 150/84 97 Intake and Output 11/11/23 11/12/23 11/12/23 22:59 06:59 14:59 Other: Weight 108.862 kg Patient is a middle aged female, in no acute distress. Patient is alert awake oriented to time place and person. Speech and language functions are normal. Patient can name and repeat very well. No aphasia or dysarthria. Attention, concentration and fund of knowledge is adequate. On cranial nerve examination, pupils are equal, round and reacting to light, visual gao are full on confrontation, with no neglect on double simultaneous stimulation. Extraocular muscles are intact with no nystagmus. Face is symmetric, tongue protrudes to the midline. Palatal elevation and sensation normal, hearing and shoulder shrug normal, facial sensation normal. On muscle strength testing, there is no pronator drift and the strength is normal in arms and legs distally and proximally. Deep tendon reflexes are symmetric 1+ to 2+ and plantars downgoing bilaterally. Sensory to touch is equal with no neglect on double simultaneous stimulation. Cerebellar function showed no ataxia for [id number] testing. No dysdiadochokinesia. No ataxia for [id number] testing on either side. Tone and bulk of muscles normal. Gait deferred.. On general examination, there is no carotid bruit or murmur, S1-S2 audible. Chest is clear on consultation. Abdomen is soft nontender. No organomegaly, bowel sounds present. Peripheral pulses are present. No peripheral edema. Patient has a bruise over the left upper calf region from recent piece of metal falling on her leg. Results - Laboratory Findings CBC and BMP: 11/11/23 18:14 11/11/23 18:14 Abnormal Lab Findings: Abnormal Labs 11/11/23 11/11/23 18:14 18:14 RBC 3.46 L Hgb 10.0 L Hct 31.1 L Chloride 109 H Glucose 136 H Assessment and Plan Assessment: * Acute episode of vertigo with nausea. Patient also had transient episode of left sided paresthesias involving face arm and leg, that lasted for an hour. Rule out stroke/TIA. * Intermittent double vision, off and on for last "couple years", unclear cause * Family history of cerebral aneurysm (maternal uncle) * Hypertension * Reported history of positive lupus anticoagulant Plan: * Patient needs stroke/TIA workup. Although her vertigo could be related to peripheral vestibular dysfunction, but with transient left-sided paresthesias, need to rule out stroke/TIA. * MRI of the brain without contrast, evaluate for acute CVA * 2-D echo with bubble study to rule out PFO * CTA head and neck rule out vertebral dissection, rule out cerebral aneurysm * Fasting a.m. lipid panel * Hemoglobin A1c * Check lupus anticoagulant, cardiolipin antibodies * Optimize control of blood pressure * Start aspirin 325 mg daily. Patient used to take aspirin 81 mg only twice a week. * Neuro checks every 4 hours. * Telemetry monitoring rule out any arrhythmia * PT, OT, speech therapy * DVT prophylaxis: Heparin 5000 units subcu every 8 hours * Neurology will continue to follow. Thank you for the consult.
--- NOTE | 2023-11-12 14:49 | P.HPIM ---
History of Present Illness 48-year-old female came in with complaints of vertigo feeling dizzy and about to pass out which is room spinning around. Patient symptoms are improved at this time patient initial blood pressure was high 230/130 which has come down at this time patient denies any slurred speech facial droop or visual disturbance patient is also complaining of headache at this time. There is a concern that patient may have had tingling sensation in the left arm left leg and left side of the face because of which neurology is recommending an MRI before discharge along with echocardiogram CT angio of the head and neck was done which did not show any significant abnormalities CT of the head is negative. Patient used to take aspirin 81 mg about twice a week which she has not been taking recently. Patient had about 2-3 episodes of any other fraction in the past presently does not have any issues with hearing. Patient was diagnosed with lupus anticoagulant in the past. REVIEW OF SYSTEMS: CONSTITUTIONAL: No fever, no malaise, no fatigue. HEENT: No recent visual problems or hearing problems. Denied any sore throat. CARDIOVASCULAR: No chest pain, orthopnea, PND, no palpitations, no syncope. PULMONARY: No shortness of breath, no cough, no hemoptysis. GASTROINTESTINAL: No diarrhea, no nausea, no vomiting, no abdominal pain. NEUROLOGICAL: As per HPI HEMATOLOGICAL: Denies any bleeding or petechiae. GENITOURINARY: Denies any burning micturition, frequency, or urgency. MUSCULOSKELETAL/RHEUMATOLOGICAL: Denies any joint pain, swelling, or any muscle pain. ENDOCRINE: Denies any polyuria or polydipsia. The rest of the 14-point review of systems is negative. PHYSICAL EXAMINATION: GENERAL: The patient is alert and oriented x3, not in any acute distress. Well developed, well nourished. HEENT: Pupils are round and equally reacting to light. EOMI. No scleral icterus. No conjunctival pallor. Normocephalic, atraumatic. No pharyngeal erythema. No thyromegaly. CARDIOVASCULAR: S1 and S2 present. No murmurs, rubs, or gallops. PULMONARY: Chest is clear to auscultation, no wheezing or crackles. ABDOMEN: Soft, nontender, nondistended, normoactive bowel sounds. No palpable organomegaly. MUSCULOSKELETAL: No joint swelling or deformity. EXTREMITIES: No cyanosis, clubbing, or pedal edema. NEUROLOGICAL: As mentioned in HPI SKIN: No rashes. Assessment and plan -Vertigo along with nausea: Most probably peripheral vertigo although there are concerns of cerebellar/brainstem stroke because of which neurology is recommending an MRI along with an echocardiogram if MRI is negative and if echocardiogram is obtained patient will be discharged. Elevated blood pressures secondary to nausea patient does not appear to have essential hypertension will not require any antihypertensive medications at this time -History of lupus anticoagulant in the past Past Medical History Past Medical History: Deep Vein Thrombosis (DVT), Eye Disorder, Neurologic Disorder Additional Past Medical History / Comment(s): RT EYE GLAUCOMA,endometreosis, murmur," leaky valve", palpatations, kidney stone, ibs, stress incont of urine. DVT RLE, History of Any Multi-Drug Resistant Organisms: None Reported Past Surgical History: Appendectomy, Cholecystectomy, Hysterectomy, Orthopedic Surgery Additional Past Surgical History / Comment(s): laparoscopy d/t endometreosis, partial hysterectomy and panniculectomy 2010, Past Anesthesia/Blood Transfusion Reactions: Previous Problems w/ Anesthesia Additional Past Anesthesia/Blood Transfusion Reaction / Comment(s): difficulty waking Past Psychological History: Anxiety, Depression Smoking Status: Never smoker Past Alcohol Use History: None Reported Past Drug Use History: None Reported - Past Family History Mother Family Medical History: No Reported History Medications and Allergies Home Medications Medication Instructions Recorded Confirmed Type Otc Menopause Supplement 1 tab PO DAILY 11/11/23 11/11/23 History Meclizine [Antivert] 25 mg PO TID PRN #30 tab 11/12/23 Rx Allergies Allergy/AdvReac Type Severity Reaction Status Date / Time clindamycin [From Cleocin] Allergy Unknown Verified 11/11/23 21:08 venlafaxine [From Effexor] AdvReac BLACKED OUT Verified 11/11/23 21:08 Physical Exam Vitals: Vital Signs Temp Pulse Pulse Resp BP Pulse Ox 11/12/23 14:03 99.0 F 61 14 129/73 96 11/12/23 13:04 61 16 128/75 95 11/12/23 12:12 98.9 F 63 16 123/72 100 11/12/23 11:30 64 17 133/68 98 11/12/23 10:02 99.0 F 69 17 131/74 99 11/12/23 09:03 99.0 F 63 17 150/88 98 11/12/23 06:28 66 11/12/23 06:00 66 16 119/76 98 11/12/23 04:00 65 16 136/70 98 11/12/23 02:58 65 16 130/89 98 11/12/23 02:00 67 18 98 11/12/23 01:00 70 16 97 11/12/23 00:00 71 18 136/84 98 11/11/23 21:44 65 16 125/80 98 11/11/23 19:49 66 16 133/79 99 11/11/23 17:39 98.3 F 79 16 150/84 97 Intake and Output 11/11/23 11/12/23 11/12/23 22:59 06:59 14:59 Other: Weight 108.862 kg Results CBC & Chem 7: 11/11/23 18:14 11/11/23 18:14 Labs: Abnormal Lab Results - Last 24 Hours (Table) 11/11/23 11/11/23 Range/Units 18:14 18:14 RBC 3.46 L (3.80-5.40) m/uL Hgb 10.0 L (11.4-16.0) gm/dL Hct 31.1 L (34.0-46.0) % Chloride 109 H (98-107) mmol/L Glucose 136 H (74-99) mg/dL
--- NOTE | 2023-11-12 14:50 | P.DS ---
Providers Date of admission: 11/11/23 19:54 Attending physician: Anna Keen Consults: 11/11/23 19:53 Consult Physician Routine Consulting Provider: Dalia Goodman Consult Reason/Comments: cva/tia Do you want consulting provider notified?: Yes Primary care physician: [facility] Course: 82-year-old male came with complaints of chest pain mild to moderate still has chest pain in the left lower chest nonradiating no associated shortness of breath lightheadedness diaphoresis. EKG sinus rhythm without any acute ST-T wave changes. Troponins were negative. Patient follows up with Dr. JUAN Mccall as an outpatient for cardiology never had any history of heart attack in the past as per the patient but the patient appears to have had a PCI of the circumflex in 2020. Patient denies any recent stress test although not a very reliable historian. Current cardiology evaluated the patient patient is recommended to follow-up with Dr. JUAN Mccall as an outpatient without any further workup. But recommending a monitor at the time of discharge. Patient chest pain is nonpleuritic not associate with food PHYSICAL EXAMINATION: GENERAL: The patient is alert and oriented x3, not in any acute distress. Well developed, well nourished. HEENT: Pupils are round and equally reacting to light. EOMI. No scleral icterus. No conjunctival pallor. Normocephalic, atraumatic. No pharyngeal erythema. No thyromegaly. CARDIOVASCULAR: S1 and S2 present. No murmurs, rubs, or gallops. PULMONARY: Chest is clear to auscultation, no wheezing or crackles. ABDOMEN: Soft, nontender, nondistended, normoactive bowel sounds. No palpable organomegaly. MUSCULOSKELETAL: No joint swelling or deformity. EXTREMITIES: No cyanosis, clubbing, or pedal edema. NEUROLOGICAL: Gross neurological examination did not reveal any focal deficits. SKIN: No rashes. Assessment and plan -Chest pain noncardiac probably musculoskeletal evaluated by cardiology, ruled out unstable angina or acute coronary syndromes patient is being discharged to follow-up with his window tinter as an outpatient further workup and testing as an outpatient after follow-up with his window tinter -Coronary artery disease He-history of atrial fibrillation paroxysmal presently sinus rhythm is on Eliquis which was resumed -Benign prostatic hypertrophy -Hyperlipidemia -Hypertension patient blood pressure is low and patient was dizzy when he came in we will cut down the dose of losartan to 25 mg from 50 mg. Patient will be discharged today to follow-up with PCP and cardiology as an outpatient Patient Condition at Discharge: Fair Plan - Discharge Summary New Discharge Prescriptions: New Meclizine [Antivert] 25 mg PO TID PRN #30 tab PRN Reason: Vertigo No Action Otc Menopause Supplement 1 tab PO DAILY Discharge Medication List Otc Menopause Supplement 1 tab PO DAILY 11/11/23 [History] Meclizine [Antivert] 25 mg PO TID PRN #30 tab 11/12/23 [Rx] Follow up Appointment(s)/Referral(s): Dusty Ware MD [STAFF PHYSICIAN] - 1 Week Discharge Disposition: HOME SELF-CARE
[2023-11-12] MEDS: KETOROLAC 15 MG/ML 1 ML VIAL IVP PRN (19:05)
[2023-11-12] MEDS: ACETAMINOPHEN IV (For NPO) 1,000 MG in EMPTY BAG 1 BAG IVPB SCH (22:58)
[2023-11-13 05:17] LABS: Cardiolipin Ab IgG Interp Negative (Negative); Cardiolipin Ab IgM Interp Negative (Negative); Cardiolipin IgA Antibody 2.9 U/mL
[2023-11-13] MEDS: FAMOTIDINE 20 MG TAB PO SCH (09:23)
[2023-11-13] MEDS: BUTALB/APAP/CAFF 50-325-40MG TAB PO PRN (12:22)
[2023-11-13 12:23] LABS: Chol/HDL Ratio 3.66 Ratio; LDL Cholesterol,Calculated 84.2 mg/dL (0.0-131.0)
[2023-11-13 13:28] LABS: APTT 40 Sec(s) (<43); Dilute Russell Viper Venom 33 Sec(s) (<44)
[2023-11-13] MEDS ORDERED: ALPRAZolam 0.25 MG TAB PO PRN (17:35)
[2023-11-13 17:40] VITALS: RESP 16
--- NOTE | 2023-11-13 19:07 | P.PN ---
Subjective Progress Note Date: 11/13/23 48-year-old female came in with complaints of vertigo feeling dizzy and about to pass out which is room spinning around. Patient symptoms are improved at this time patient initial blood pressure was high 230/130 which has come down at this time patient denies any slurred speech facial droop or visual disturbance patient is also complaining of headache at this time. There is a concern that patient may have had tingling sensation in the left arm left leg and left side of the face because of which neurology is recommending an MRI before discharge along with echocardiogram CT angio of the head and neck was done which did not show any significant abnormalities CT of the head is negative. Patient used to take aspirin 81 mg about twice a week which she has not been taking recently. Patient had about 2-3 episodes of any other fraction in the past presently does not have any issues with hearing. Patient was diagnosed with lupus anticoagulant in the past. 11/13/2023 Patient is evaluated today sitting up in the bed. Patient wants to be discharged. Pending echocardiogram and MRI still which MRI wont be dont until tomorrow. Patient is now reporting migraine has not gotten better with the IV toradol. Its in the left eye and radiating down to the back of the neck. Patient denies any visual disturbances. Blood pressure has improved down to 143/89. REVIEW OF SYSTEMS: CONSTITUTIONAL: No fever, no malaise, no fatigue. HEENT: No recent visual problems or hearing problems. Denied any sore throat. CARDIOVASCULAR: No chest pain, orthopnea, PND, no palpitations, no syncope. PULMONARY: No shortness of breath, no cough, no hemoptysis. GASTROINTESTINAL: No diarrhea, no nausea, no vomiting, no abdominal pain. NEUROLOGICAL: Reports occular migraine radiation down to the back of the neck. Reports left arm weakness and numbness. Has some mild left leg weakness as well. PHYSICAL EXAMINATION: GENERAL: The patient is alert and oriented x3, not in any acute distress. Well developed, well nourished. HEENT: Pupils are round and equally reacting to light. EOMI. No scleral icterus. No conjunctival pallor. Normocephalic, atraumatic. No pharyngeal erythema. No thyromegaly. CARDIOVASCULAR: S1 and S2 present. No murmurs, rubs, or gallops. PULMONARY: Chest is clear to auscultation, no wheezing or crackles. ABDOMEN: Soft, nontender, nondistended, normoactive bowel sounds. No palpable organomegaly. MUSCULOSKELETAL: No joint swelling or deformity. EXTREMITIES: No cyanosis, clubbing, or pedal edema. NEUROLOGICAL: As mentioned in HPI SKIN: No rashes. Assessment and plan -Vertigo along with nausea: Most probably peripheral vertigo although there are concerns of cerebellar/brainstem stroke patient with left weakness and numbness has developed migraine on the left. -Elevated blood pressures secondary to nausea patient does not appear to have essential hypertension will not require any antihypertensive medications at this time. BP was elevated in the 200s systolic at home when the vertigo started -Migraine -Hx of DVT -Hx of glaucoma in the right eye in the past -GI prophylaxis DVT prophylaxis Full Code Plan Pending MRI and Echocardiogram to complete stroke work up Continues on aspirin 325 mg daily. Neurology following closely Fioricet added for migraine. The impression and plan of care has been dictated by Fiorella Ruiz, Nurse Practitioner as directed. Dr. Mariano MD I have performed a history and physical examination and medical decision making of this patient, discussed the same with the dictator, and agree with the dictators assessment and plan as written, documented as a scribe. Based on total visit time, I have performed more than 50% of this visit. Objective - Vital Signs Vital signs: Vital Signs Temp 98.0 F 11/13/23 08:00 Pulse 76 11/13/23 16:00 Resp 16 11/13/23 16:00 BP 143/89 11/13/23 16:00 Pulse Ox 100 11/13/23 16:00 FiO2 Intake & Output 11/12/23 11/13/23 11/13/23 18:59 06:59 18:59 Intake Total 540 Balance 540 Weight 108.862 kg Intake: Oral 540 Other: Voiding Method Toilet Toilet # Voids 2 2 # Bowel Movements 0 - Labs CBC & Chem 7: 11/11/23 18:14 11/11/23 18:14 Assessment and Plan Time with Patient: Less than 30
[2023-11-13] MEDS: ATORVASTATIN 20 MG TAB PO SCH (20:13)
--- NOTE | 2023-11-14 09:43 | P.PN ---
Subjective Progress Note Date: 11/13/23 Patient was seen for a follow-up. Patient states she is feeling much better. She is only 10% of dizziness left, only when she gets up and walks when she gets dizzy. Otherwise she is much better. She is complaining of migraine type headache left frontal temporal region, that also goes to behind the left eye and then occipital region to the neck. Denies any numbness or tingling of the extremities. She believes her left side feels slightly weak. No new concerns otherwise. Objective - Vital Signs Vital signs: Vital Signs Temp 98.0 F 11/13/23 08:00 Pulse 65 11/13/23 08:00 Resp 18 11/13/23 08:00 BP 135/83 11/13/23 08:00 Pulse Ox 99 11/13/23 08:00 FiO2 Intake & Output 11/12/23 11/13/23 11/13/23 18:59 06:59 18:59 Weight 108.862 kg Other: Voiding Method Toilet Toilet # Voids 2 2 # Bowel Movements 0 - Exam Mental status, speech and language functions are normal. Cranial nerves are normal. Visual gao are full. Face is symmetric. On muscle strength testing, there is no pronator drift and the strength is normal in arms and legs except left coal trimmer, which is about 5-as compared to the right. Sensory to touch is equal with no neglect. No ataxia for [id number] or [id number] testing. - Labs CBC & Chem 7: 11/11/23 18:14 11/11/23 18:14 Assessment and Plan Assessment: * Acute episode of vertigo with nausea. Patient also had transient episode of left sided paresthesias involving face arm and leg, that lasted for an hour. Rule out stroke/TIA. * Intermittent double vision, off and on for last "couple years", unclear cause * Family history of cerebral aneurysm (maternal uncle) * Hypertension * Reported history of positive lupus anticoagulant Plan: * Patient needs stroke/TIA workup. Although her vertigo could be related to peripheral vestibular dysfunction, but with transient left-sided paresthesias, need to rule out stroke/TIA. * Await MRI of the brain without contrast, evaluate for acute CVA * Await 2-D echo with bubble study to rule out PFO * CTA head and neck rule out vertebral dissection, rule out cerebral aneurysm * Fasting a.m. lipid panel with cholesterol 155, LDL 84, HDL 42, triglycerides 142. We will start Lipitor 20 mg daily to target LDL <70. * Hemoglobin A1c 5.7 * Lupus anticoagulant is negative, cardiolipin antibodies also negative * Optimize control of blood pressure * Start aspirin 325 mg daily. Patient used to take aspirin 81 mg only twice a week. * Neuro checks every 4 hours. * Telemetry monitoring rule out any arrhythmia * DVT prophylaxis: Heparin 5000 units subcu every 12 hours * Await above test results before neurological clearance.
[2023-11-14] MEDS: HEPARIN SODIUM,PORCINE 5,000 UNIT/ML 1 ML VIAL SQ SCH (09:51)
[2023-11-14 10:37] VITALS: TEMP 98.1
[2023-11-14 14:43] VITALS: BP 151/74; PULSE 65
--- NOTE | 2023-11-14 15:42 | P.PN ---
Subjective Progress Note Date: 11/14/23 48-year-old female came in with complaints of vertigo feeling dizzy and about to pass out which is room spinning around. Patient symptoms are improved at this time patient initial blood pressure was high 230/130 which has come down at this time patient denies any slurred speech facial droop or visual disturbance patient is also complaining of headache at this time. There is a concern that patient may have had tingling sensation in the left arm left leg and left side of the face because of which neurology is recommending an MRI before discharge along with echocardiogram CT angio of the head and neck was done which did not show any significant abnormalities CT of the head is negative. Patient used to take aspirin 81 mg about twice a week which she has not been taking recently. Patient had about 2-3 episodes of any other fraction in the past presently does not have any issues with hearing. Patient was diagnosed with lupus anticoagulant in the past. 11/13/2023 Patient is evaluated today sitting up in the bed. Patient wants to be discharged. Pending echocardiogram and MRI still which MRI wont be dont until tomorrow. Patient is now reporting migraine has not gotten better with the IV toradol. Its in the left eye and radiating down to the back of the neck. Patient denies any visual disturbances. Blood pressure has improved down to 143/89. 11/14/2023 Patient continues to have severe headache on the left side starting behind the left eye and radiating down back behind her ear. She is receiving Fioricet [id number] as well as IV Toradol without much improvement in her migraine she states that actually it felt worse today. She continues with left sided weakness. Patient is currently pending echocardiogram and MRI. His cholesterol panel reveals triglycerides of 142, cholesterol 155, LDL of 84, HDL of 42.4. Cardiolipin panel is negative. REVIEW OF SYSTEMS: CONSTITUTIONAL: No fever, no malaise, no fatigue. HEENT: No recent visual problems or hearing problems. Denied any sore throat. CARDIOVASCULAR: No chest pain, orthopnea, PND, no palpitations, no syncope. PULMONARY: No shortness of breath, no cough, no hemoptysis. GASTROINTESTINAL: No diarrhea, no nausea, no vomiting, no abdominal pain. NEUROLOGICAL: Reports occular migraine radiation down to the back of the neck. Reports left arm weakness and numbness. Has some mild left leg weakness as well. PHYSICAL EXAMINATION: GENERAL: The patient is alert and oriented x3, not in any acute distress. Well developed, well nourished. HEENT: Pupils are round and equally reacting to light. EOMI. No scleral icterus. No conjunctival pallor. Normocephalic, atraumatic. No pharyngeal erythema. No thyromegaly. CARDIOVASCULAR: S1 and S2 present. No murmurs, rubs, or gallops. PULMONARY: Chest is clear to auscultation, no wheezing or crackles. ABDOMEN: Soft, nontender, nondistended, normoactive bowel sounds. No palpable organomegaly. MUSCULOSKELETAL: No joint swelling or deformity. EXTREMITIES: No cyanosis, clubbing, or pedal edema. NEUROLOGICAL: As mentioned in HPI SKIN: No rashes. Assessment and plan -Vertigo along with nausea: Most probably peripheral vertigo although there are concerns of cerebellar/brainstem stroke patient with left weakness and numbness has developed migraine on the left. -Elevated blood pressures secondary to nausea patient does not appear to have essential hypertension will not require any antihypertensive medications at this time. BP was elevated in the 200s systolic at home when the vertigo started -Migraine -Hx of DVT -Hx of glaucoma in the right eye in the past -GI prophylaxis DVT prophylaxis Full Code Plan Pending MRI and Echocardiogram to complete stroke work up Continues on aspirin 325 mg daily. Neurology following closely Fioricet added for migraine. Not helping we will add Compazine and see how this works. The impression and plan of care has been dictated by Fiorella Ruiz, Nurse Practitioner as directed. Dr. Mariano MD I have performed a history and physical examination and medical decision making of this patient, discussed the same with the dictator, and agree with the dictators assessment and plan as written, documented as a scribe. Based on total visit time, I have performed more than 50% of this visit. Objective - Vital Signs Vital signs: Vital Signs Temp 98.1 F 11/14/23 08:00 Pulse 66 11/14/23 08:00 Resp 16 11/14/23 08:00 BP 136/84 11/14/23 08:00 Pulse Ox 97 11/14/23 08:00 FiO2 Intake & Output 11/13/23 11/14/23 11/14/23 18:59 06:59 18:59 Intake Total 540 596 Balance 540 596 Weight 108.4 kg Intake: Oral 540 596 Other: Voiding Method Toilet Toilet Toilet # Voids 2 1 3 # Bowel Movements 0 - Labs CBC & Chem 7: 11/11/23 18:14 11/11/23 18:14 Assessment and Plan Time with Patient: Less than 30
[2023-11-14] MEDS: PROCHLORPERAZINE 5 MG TAB PO STA (16:43)
[2023-11-14] MEDS: lisinopriL 5 MG TAB PO SCH (16:57)
--- NOTE | 2023-11-14 18:51 | P.PN ---
Subjective Progress Note Date: 11/14/23 Patient was seen for a follow-up. Patient's friend was also present by the bedside. Patient complains of left frontal temporal headache and also behind the left eye that extends to the left occipital region. She rates it 5/10. Patient again mentions that she worked outside for 4 hours, was doing well. 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 She was bending down and was outside for only 10 minutes before she felt dizzy, spinning and felt will pass out. Patient does not remember much details of her ambulance ride to the hospital. She does not believe that it is an inner ear infection. Patient claims that when EMS arrived, she was told that her blood pr essure was 230/130 although it is not documented in the EMS flowsheet. It is uncertain if patient had heat exhaustion, heat stroke or hypertensive encephalopathy with some focal findings. Objective - Vital Signs Vital signs: Vital Signs Temp 98.1 F 11/14/23 08:00 Pulse 65 11/14/23 14:00 Resp 16 11/14/23 12:00 BP 151/74 11/14/23 12:00 Pulse Ox 99 11/14/23 12:00 FiO2 Intake & Output 11/13/23 11/14/23 11/14/23 18:59 06:59 18:59 Intake Total 540 596 Balance 540 596 Weight 108.4 kg Intake: Oral 540 596 Other: Voiding Method Toilet Toilet Toilet # Voids 2 1 3 # Bowel Movements 0 - Exam Mental status, speech and language functions are normal. Cranial nerves are normal. Visual gao are full. Face is symmetric. On muscle strength testing, there is no pronator drift and the strength is normal in arms and legs except left owner consulting engineer, which is about 5-as compared to the right. Sensory to touch is equal with no neglect. No ataxia for [id number] or cpdz-ru-[id number] testing. - Labs CBC & Chem 7: 11/11/23 18:14 11/11/23 18:14 Assessment and Plan Assessment: * Acute encephalopathy, with episode of vertigo with nausea. Patient also had transient episode of left sided paresthesias involving face arm and leg, that lasted for an hour. No evidence of acute stroke noted on MRI of the brain. Patient worked outside in very hot weather for extended hours. She may had heat exhaustion/heat stroke versus hypertensive encephalopathy. * Left-sided headache, appears like migraine. This may be related to her hypertension, or related to recent heat exhaustion. * Intermittent double vision, off and on for last "couple years", unclear cause * Family history of cerebral aneurysm (maternal uncle) * Hypertension * Reported history of positive lupus anticoagulant Plan: * Patient underwent MRI of the brain today, which on my review is normal. No evidence of small vessel disease. No acute ischemic stroke. There are 2 polyps in the left maxillary sinus but appears very benign. No fluid. Official radio report pending. * Await 2-D echo with bubble study to rule out PFO * CTA head and neck revealed no evidence of dissection of the cervical internal carotid arteries or vertebral arteries or any evidence of significant stenosis at the carotid bifurcations. * Fasting a.m. lipid panel with cholesterol 155, LDL 84, HDL 42, triglycerides 142. Patient's lipids are fairly well-controlled. With negative MRI, we will discontinue statin. * Hemoglobin A1c 5.7 * Patient states her blood pressure was very highly elevated when EMS arrived. Patient is running somewhat mildly elevated blood pressure. We will start her on lisinopril 5 mg daily. Further blood pressure can be monitored by her primary physician. * Lupus anticoagulant is negative, cardiolipin antibodies also negative * Optimize control of blood pressure * Patient to continue aspirin 81 mg daily. * Telemetry monitoring rule out any arrhythmia * DVT prophylaxis: Heparin 5000 units subcu every 12 hours * Neurologically clear. May follow-up with neurologist as outpatient, if symptoms persist. Addendum: 2D echo revealed normal left ventricular EF 60%. Left ventricular wall thickness normal. No obvious regional wall motion abnormalities. Normal left and right atrial size. No significant valvular abnormalities trace MR, trace AR. MRI of the brain revealed no acute intracranial process.
--- NOTE | 2023-11-14 22:14 | MR ---
EXAMINATION TYPE: MR brain wo con DATE OF EXAM: 11/14/2023 COMPARISON: 11/11/2023 CT brain HISTORY: Dizziness. CONTRAST: None TECHNIQUE: Multiplanar, multiecho imaging on a 3.0 Therese magnet is performed through the brain. Stud y is performed within 24 hours of arrival to the hospital. The craniovertebral junction is normal. The pituitary is normal. Optic chiasm as visualized appears normal. Diffusion-weighted imaging is performed. No abnormal hyperintensity is present to suggest an acute i ntracranial infarct or acute ischemic change. There are scattered punctate areas of hyperintensity on T2 and Inversion Recovery weighted sequences which are non-specific but can be related to microvascular ischemic changes. Ventricles and sulci are appropriate for the patient age. There is a retention cyst within the posterior mid left maxillary sinus. Tiny anterior retention cyst s within the right maxillary sinus. IMPRESSION: 1. No acute intracranial process.
[2023-11-15] MEDS ORDERED: ASPIRIN 81 MG PO SCH (09:00)
--- NOTE | 2023-11-15 12:53 | CA ---
Transthoracic Echo Report Name: Roberta Mejia Age: 48 Gender: F : 1975 Exam Date: 11/14/2023 11:55 Exam Location: [facility] Ht (in): 70 Wt (lb): 240 Ordering Physician: Dalia Goodman MD Attending/Referring Phys: Solar Designer/Installer Katia Grande RDCS Procedure CPT: Indications: Stroke TIA Cardiac Hx: Technical Quality: Fair Contrast 1: Agitated Saline Total Dose (mL): 10 Contrast 2: Total Dose (mL): MEASUREMENTS (Male / Female) Normal Values 2D ECHO LV Diastolic Diameter PLAX 4.9 cm 4.2 - 5.9 / 3.9 - 5.3 cm LV Systolic Diameter PLAX 3.1 cm IVS Diastolic Thickness 0.9 cm 0.6 - 1.0 / 0.6 - 0.9 cm LVPW Diastolic Thickness 0.9 cm 0.6 - 1.0 / 0.6 - 0.9 cm LV Relative Wall Thickness 0.4 LVOT Diameter 2.1 cm LV Diastolic Volume MOD BP 147.3 cm??? 67 - 155 / 56 - 104 cm??? LV Systolic Volume MOD BP 52.3 cm??? 22 - 58 / 19 - 49 cm??? LV Ejection Fraction MOD BP 64.5 % >= 55 % LV Cardiac Index MOD BP 2460.6 cm???/min???m??? LV Diastolic Volume MOD 4C 151.1 cm??? LV Systolic Volume MOD 4C 51.5 cm??? LV Ejection Fraction MOD 4C 65.9 % LV Cardiac Index MOD 4C 2577.7 cm???/min???m??? LV Diastolic Length 4C 9.7 cm LV Systolic Length 4C 7.5 cm LV Diastolic Volume MOD 2C 138.3 cm??? LV Systolic Volume MOD 2C 53.4 cm??? LV Ejection Fraction MOD 2C 61.4 % LV Cardiac Index MOD 2C 2196.3 cm???/min???m??? LV Diastolic Length 2C 9.3 cm LV Systolic Length 2C 7.5 cm LA Volume 51.1 cm??? 18 - 58 / 22 - 52 cm??? LA Volume Index 21.7 cm???/m??? 16 - 28 cm???/m??? Ascending Aorta Diameter 3.1 cm DOPPLER AV Peak Velocity 154.1 cm/s AV Peak Gradient 9.5 mmHg AV Mean Velocity 98.5 cm/s AV Mean Gradient 4.6 mmHg AV Velocity Time Integral 33.4 cm LVOT Peak Velocity 129.0 cm/s LVOT Peak Gradient 6.7 mmHg LVOT Velocity Time Integral 29.4 cm LVOT Stroke Volume 97.7 cm??? LVOT Stroke Volume Index 43.3 ml/m??? LVOT Cardiac Index 2528.7 cm???/min???m??? AV Area Cont Eq vti 2.9 cm??? AV Area Cont Eq pk 2.8 cm??? MV Area PHT 3.8 cm??? Mitral E Point Velocity 82.0 cm/s Mitral A Point Velocity 62.0 cm/s Mitral E to A Ratio 1.3 MV Deceleration Time 200.4 ms PV Peak Velocity 87.5 cm/s PV Peak Gradient 3.1 mmHg FINDINGS Left Ventricle Left ventricular ejection fraction is estimated at 60 %. Mildly increased left ventricular systolic volume. Left ventricular wall thickness normal. No obvious regional wall motion abnormalities. Right Ventricle Normal right ventricular size and function. Unable to estimate the right ventricular systolic pressure. Right Atrium Normal right atrial size. Left Atrium Normal left atrial size. Mitral Valve Structurally normal mitral valve. No evidence for mitral valve prolapse. No mitral stenosis. Trace mitral regurgitation. Aortic Valve Trileaflet aortic valve. No aortic stenosis. Trace aortic regurgitation. Tricuspid Valve Structurally normal tricuspid valve. No tricuspid stenosis. No tricuspid regurgitation. Pulmonic Valve Structurally normal pulmonic valve. No pulmonic stenosis. No pulmonic regurgitation. Pericardium No pericardial effusion. Aorta Normal size aortic root and proximal ascending aorta. CONCLUSIONS Left ventricular ejection fraction 60% Trace mitral regurgitation Trace aortic regurgitation No pericardial effusion Previewed by: Dr. Puma Gonsales DO (Electronically Signed) Final Date: 15 November 2023 12:52
--- NOTE | 2023-11-16 08:45 | P.DS ---
Providers Date of admission: 11/14/23 07:25 Attending physician: Anna Keen Consults: 11/11/23 19:53 Consult Physician Routine Consulting Provider: Dalia Goodman Consult Reason/Comments: cva/tia Do you want consulting provider notified?: Yes Primary care physician: Patrick Perez [facility] Hospital Course: Final Diagnosis -Vertigo along with nausea: Most probably peripheral vertigo and concern for migraine -Stroke like symptoms with Left arm weakness/numbness and migraine. MRI negative. Concern for heat stroke vs. migraine. 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 Patient will need to follow-up with a neurologist closely on discharge. She will continue Fioricet for migraine. As well as aspirin 81 mg daily. Patient has been started on lisinopril for blood pressure control. Hospital Course 48-year-old female came in with complaints of vertigo feeling dizzy and about to pass out which is room spinning around. Patient symptoms are improved at this time patient initial blood pressure was high 230/130 which has come down at this time patient denies any slurred speech facial droop or visual disturbance patient is also complaining of headache at this time. There is a concern that patient may have had tingling sensation in the left arm left leg and left side of the face because of which neurology is recommending an MRI before discharge along with echocardiogram CT angio of the head and neck was done which did not show any significant abnormalities CT of the head is negative. Patient used to take aspirin 81 mg about twice a week which she has not been taking recently. Patient had about 2-3 episodes of any other fraction in the past presently does not have any issues with hearing. Patient was diagnosed with lupus anticoagulant in the past. Was admitted to the hospital to consult placed to neurology she had a full stroke workup. Patient had an echocardiogram with bubble study done reveals an ejection fraction of 60% with trace MR and trace aortic regurgitation. Brain MRI no acute intracranial process. Patient's left- sided numbness has improved and she is less weak. Today strength is about 4.5 out of 5. Was cleared by neurology to discharge on an aspirin milligrams daily and was recommended to start lisinopril for improved blood pressure control. Patient is also given meclizine for vertigo as needed. Patient will also discharge on Fioricet for the migraine. She is recommended to follow-up closely with a neurologist on discharge. Please see medication reconciliation for a list of current medications. Thank you for allowing us to participate in the care of this patient. The impression and plan of care has been dictated by Fiorella Ruiz, Nurse Practitioner as directed. Dr. Mariano MD I have performed a history and physical examination and medical decision making of this patient, discussed the same with the dictator, and agree with the dictators assessment and plan as written, documented as a scribe. Based on total visit time, I have performed more than 50% of this visit. Patient Condition at Discharge: Fair Plan - Discharge Summary Discharge Rx Participant: No New Discharge Prescriptions: New Meclizine [Antivert] 25 mg PO TID PRN #30 tab PRN Reason: Vertigo Aspirin 81 mg PO DAILY #30 tab Famotidine [Pepcid] 20 mg PO DAILY #30 tablet lisinopriL [Zestril] 5 mg PO DAILY #30 tab Butalb/APAP/Caff 50-325-40Mg [Fioricet 50-325-40] 1 tab PO Q4H PRN 3 Days #18 tablet PRN Reason: Migraine Headache Continue Otc Menopause Supplement 1 tab PO DAILY Discharge Medication List Otc Menopause Supplement 1 tab PO DAILY 11/11/23 [History] Meclizine [Antivert] 25 mg PO TID PRN #30 tab 11/12/23 [Rx] Aspirin 81 mg PO DAILY #30 tab 11/14/23 [Rx] Butalb/APAP/Caff 50-325-40Mg [Fioricet 50-325-40] 1 tab PO Q4H PRN 3 Days #18 tablet 11/14/23 [Rx] Famotidine [Pepcid] 20 mg PO DAILY #30 tablet 11/14/23 [Rx] lisinopriL [Zestril] 5 mg PO DAILY #30 tab 11/14/23 [Rx] Follow up Appointment(s)/Referral(s): Dusty Ware MD [STAFF PHYSICIAN] - 1 Week Lonnie Alex DO [STAFF PHYSICIAN] - 1 Week Activity/Diet/Wound Care/Special Instructions: Follow up with a neurologist Dr. Alex has been recommended. Discharge Disposition: HOME SELF-CARE
== END 2023-11-14 18:49 | disposition home or self-care (01) ==
LOC: EC 17:37 → 3SCARD 19:54 → INTOOBSV 11-14 07:25 → OBSVTOIN 11-14 07:25 → UNDODISIN 11-14 18:49
PROVIDERS: ADMIT Hospitalist; ATTEND Hospitalist
DX: G43.909 Migraine, unspecified, not intractable, without status migrainosus (principal); G93.49 Other encephalopathy; R03.0 Elevated blood-pressure reading, without diagnosis of hypertension; D68.62 Lupus anticoagulant syndrome; H40.9 Unspecified glaucoma; I08.0 Rheumatic disorders of both mitral and aortic valves; Z78.0 Asymptomatic menopausal state; Z79.899 Other long term (current) drug therapy; Z88.1 Allergy status to other antibiotic agents; Z88.8 Allergy status to other drugs, medicaments and biological substances; Z86.73 Personal history of transient ischemic attack (TIA), and cerebral infarction without residual deficits; Z86.718 Personal history of other venous thrombosis and embolism; Z90.710 Acquired absence of both cervix and uterus; Z56.3 Stressful work schedule; Z82.49 Family history of ischemic heart disease and other diseases of the circulatory system
CPT/HCPCS: 96376; 96365; 96366; 96372; 96361; 96375 ×2; 99285; 36415; 93005; 93306; 80061; 80053; 83735; 85025; 85730; 85613; 86147; 83036; 70496; 70450; 70498; 70551; G0378 ×4; J1644; J2765; J0131 ×2; J1885 ×2; Q9967; 96374

== ENCOUNTER → 2023-11-18 | Outpatient (CLI) | payer OTHER ==
--- NOTE | 2023-11-18 14:18 | MM ---
Reason for Exam: Additional evaluation requested from prior study. Last mammogram was performed 1 year(s) and 1 month(s) ago. Patient History: Menarche at age 10. First Full-Term at age 21. Hysterectomy at age 31. Postmenopausal. Patient has history of breast feeding. Risk Values: Aileen 5 year model risk: 0.9%. NCI Lifetime model risk: 8.0%. Prior Study Comparison: 07/28/2009 Bilateral Screening Mammogram, [facility]. 10/16/2022 Bilateral MG screening mammo w CAD, [facility]. 10/22/2022 Left MG 3D work up w/cad LT, [facility]. 05/02/2023 Left MG 3D diag mammo w/cad LT, [facility]. Tissue Density: There are scattered areas of fibroglandular density. Findings: Analyzed By CAD. The pattern is symmetrical. Focal asymmetries in the lower inner aspect mid left breast present. Vague increase density in the outer mid portion left breast is present, stable. No suspicious groups of microcalcifications, spiculated or lobular masses, architectural distortion or other secondary signs of malignancy are mammographically apparent. Overall Assessment: Benign, BI-RAD 2 Management: Screening Mammogram of both breasts in 1 year. A negative mammogram report should not preclude additional follow up of suspicious palpable abnormalities. Patient should continue monthly self breast exam. A clinical breast exam by your physician is recommended on an annual basis and results should be correlated with mammographic findings. Note on Aileen scores and lifetime risk: 1. A Aileen score greater than 3% is considered moderate risk. If this is the case, consider specialist referral to assess eligibility for a risk reducing agent. 2. If overall lifetime risk for the development of breast cancer is 20% or higher, the patient may qualify for future screening with alternating mammogram and breast MRI. Electronically signed and approved by: Rod Bustillo D.O. Radiologis
== END | disposition home or self-care (01) ==
LOC: RADMAMWWP 13:42
PROVIDERS: ATTEND Family Medicine
DX: R92.323 Mammographic fibroglandular density, bilateral breasts (principal); Z78.0 Asymptomatic menopausal state
CPT/HCPCS: 77066; G0279; 77062

== ENCOUNTER 2024-01-30 08:02 | Day surgery (SDC) | payer OTHER ==
[2024-01-29 08:57] VITALS: BMI 33.5
[2024-01-30] MEDS ORDERED: LIDOCAINE 1% (10MG/ML) FOR IV START INTRADERMA PRN (08:15)
[2024-01-30 08:25] VITALS: TEMP 97
[2024-01-30] MEDS: LACTATED RINGERS 1,000 ML IV SCH (08:45)
[2024-01-30] MEDS: IV FLUID CONTINUATION 1,000 ML IV ONE (08:47)
[2024-01-30 08:49] LABS: Glucose,Whole Blood 100 mg/dL (70-110)
[2024-01-30] MEDS ORDERED: PROPOFOL 10 MG/ML 20 ML VIAL IV ONE (09:22)
--- NOTE | 2024-01-30 09:26 | P.GSHP ---
History of Present Illness H&P Date: 01/30/24 Chief Complaint: Screening colonoscopy Is a 48-year-old who presents today for screening colonoscopy. Past Medical History Past Medical History: CVA/TIA, Deep Vein Thrombosis (DVT), Eye Disorder, Neurologic Disorder Additional Past Medical History / Comment(s): RT EYE GLAUCOMA,endometreosis, murmur," leaky valve", palpatations, kidney stone, ibs, stress incont of urine. DVT RLE, TIA NOVEMBER 2023, ALSO HAVING UTI SYMPTOMS-INSTRUCTED TO NOTIFY DR. VERMA History of Any Multi-Drug Resistant Organisms: None Reported Past Surgical History: Appendectomy, Cholecystectomy, Hysterectomy, Orthopedic Surgery Additional Past Surgical History / Comment(s): laparoscopy d/t endometreosis, partial hysterectomy and panniculectomy 2010, ACL REPAIR RT KNEE WITH CADAVER BONE, COLONOSCOPY Past Anesthesia/Blood Transfusion Reactions: Previous Problems w/ Anesthesia Additional Past Anesthesia/Blood Transfusion Reaction / Comment(s): difficulty waking Smoking Status: Never smoker - Past Family History Mother Family Medical History: No Reported History Medications and Allergies Home Medications Medication Instructions Recorded Confirmed Type Aspirin 81 mg PO DAILY #30 tab 11/14/23 01/30/24 Rx lisinopriL [Zestril] 5 mg PO DAILY #30 tab 11/14/23 01/30/24 Rx Latanoprost Ophth [Xalatan 0.005%] 1 drops BOTH EYES HS 01/29/24 01/30/24 History Tirzepatide [Zepbound] 5 mg SQ SA 01/29/24 01/30/24 History Allergies Allergy/AdvReac Type Severity Reaction Status Date / Time clindamycin [From Cleocin] Allergy Unknown Verified 01/30/24 08:21 venlafaxine [From Effexor] AdvReac BLACKED OUT Verified 01/30/24 08:21 Surgical - Exam Vital Signs Temp Pulse Resp BP Pulse Ox 97.0 F L 70 18 117/58 99 01/30/24 08:18 01/30/24 08:18 01/30/24 08:18 01/30/24 08:18 01/30/24 08:18 - General well developed, well nourished, no distress - Eyes PERRL - ENT normal pinna - Neck no masses - Respiratory normal expansion - Cardiovascular Rhythm: regular - Abdomen Abdomen: soft Assessment and Plan Assessment: Will perform screening colonoscopy.
--- NOTE | 2024-01-30 09:42 | P.OP ---
Date of Procedure: 01/30/24 Preoperative Diagnosis: screening colonoscopy Postoperative Diagnosis: Internal/external hemorrhoids Procedure(s) Performed: Colonoscopy Anesthesia: MAC Surgeon: Hilton Chaidez Pathology: none sent Condition: stable Disposition: PACU Description of Procedure: The patient was placed on the endoscopy table in the lateral position. She received IV sedation. Digital rectal exam was performed. This revealed internal/external hemorrhoids. The flexible colonoscope was then placed patient anus and passed throughout the entire colon. The ileocecal valve was visualized. The cecum, ascending transverse colon appeared normal. The descending and sigmoid colon appeared normal. The rectum is normal. Scope was then withdrawn through the anus and internal/external hemorrhoids were noted. The scope was withdrawn from patient.
[2024-01-30 09:45] VITALS: RESP 16
[2024-01-30 10:03] VITALS: BP 108/67; PULSE 68
--- NOTE | 2024-01-30 10:13 | P.OP ---
Date of Procedure: 01/30/24 Preoperative Diagnosis: Screening colonoscopy Postoperative Diagnosis: internal/external hemorrhoids Procedure(s) Performed: colonoscopy Anesthesia: MAC Surgeon: Hilton Chaidez Pathology: none sent Condition: stable Disposition: PACU Description of Procedure: The patient was placed on the endoscopy table in the lateral position. She received IV sedation. Digital rectal exam was performed which revealed internal/external hemorrhoids. The flexible colonoscope was then placed patient anus and passed throughout the entire colon. The ileocecal valve was visualized. The cecum, ascending and transverse colon appeared normal. The descending and sigmoid colon appeared normal. Scope was back the rectum this appeared normal. Scope withdrawn through the anus and internal/external hemorrhoids were noted.
== END 2024-01-30 10:12 | disposition home or self-care (01) ==
LOC: ORWHC2ENDO 08:02
PROVIDERS: ATTEND Surgery
DX: Z12.11 Encounter for screening for malignant neoplasm of colon
CPT/HCPCS: 45378

== ENCOUNTER 2024-09-24 01:13 | Emergency (ER) | payer OTHER ==
[2024-09-24 01:17] VITALS: TEMP 97.6
--- NOTE | 2024-09-24 02:07 | ED ---
General Adult HPI - General Chief complaint: Chest Pain Stated complaint: Chest pain Time Seen by Provider: 09/24/24 01:20 Source: patient Mode of arrival: ambulatory - History of Present Illness Initial comments: Dictation was produced using [employer] dictation software. please excuse any grammatical, word or spelling errors. Chief Complaint: 49-year-old female chest pain History of Present Illness: Patient is a 49-year-old female presents with chest pain states that it sharp worse with deep inspiration she has a history of DVT. Denies any radiation of symptoms. Denies any shortness of breath. Patient states that she has to intentionally alter her breathing to be shallow so she does not feel the pain. States she has been having frequent episodes of this however usually lasts for only few minutes. The ROS documented in this emergency department record has been reviewed and confirmed by me. Those systems with pertinent positive or negative responses have been documented in the HPI. All other systems are other negative and/or noncontributory. - Related Data Home Medications Medication Instructions Recorded Confirmed Latanoprost Ophth [Xalatan 0.005%] 1 drops BOTH EYES HS 01/29/24 01/30/24 Tirzepatide [Zepbound] 5 mg SQ SA 01/29/24 01/30/24 Previous Rx's Medication Instructions Recorded Aspirin 81 mg PO DAILY #30 tab 11/14/23 lisinopriL [Zestril] 5 mg PO DAILY #30 tab 11/14/23 Allergies Allergy/AdvReac Type Severity Reaction Status Date / Time clindamycin [From Cleocin] Allergy Unknown Verified 09/24/24 01:17 venlafaxine [From Effexor] AdvReac BLACKED OUT Verified 09/24/24 01:17 Review of Systems ROS Statement: Those systems with pertinent positive or pertinent negative responses have been documented in the HPI. ROS Other: All systems not noted in ROS Statement are negative. Past Medical History Past Medical History: CVA/TIA, Deep Vein Thrombosis (DVT), Eye Disorder, Neurologic Disorder Additional Past Medical History / Comment(s): RT EYE GLAUCOMA,endometreosis, murmur," leaky valve", palpatations, kidney stone, ibs, stress incont of urine. DVT RLE, TIA NOVEMBER 2023, ALSO HAVING UTI SYMPTOMS-INSTRUCTED TO NOTIFY DR. BHESANIA History of Any Multi-Drug Resistant Organisms: None Reported Past Surgical History: Appendectomy, Cholecystectomy, Hysterectomy, Orthopedic Surgery Additional Past Surgical History / Comment(s): laparoscopy d/t endometreosis, partial hysterectomy and panniculectomy 2010, ACL REPAIR RT KNEE WITH CADAVER BONE, COLONOSCOPY Past Anesthesia/Blood Transfusion Reactions: Previous Problems w/ Anesthesia Additional Past Anesthesia/Blood Transfusion Reaction / Comment(s): difficulty waking Past Psychological History: Anxiety, Depression Smoking Status: Never smoker Past Alcohol Use History: Occasional Past Drug Use History: None Reported - Past Family History Mother Family Medical History: No Reported History General Exam - General Exam Comments Initial Comments: PHYSICAL EXAM: General Impression: Alert and oriented x3, not in acute distress HEENT: Normocephalic atraumatic, extra-ocular movements intact, pupils equal and reactive to light bilaterally, mucous membranes moist. Cardiovascular: Heart regular rate and rhythm Chest: Able to complete full sentences, no retractions, no tachypnea Abdomen: abdomen soft, non-tender, non-distended, no organomegaly Musculoskeletal: Pulses present and equal in all extremities, no peripheral edema Motor: no focal deficits noted Neurological: CN II-XII grossly intact, no focal motor or sensory deficits noted Skin: Intact with no visualized rashes Psych: Normal affect and mood Course Vital Signs 09/24/24 09/24/24 01:14 02:58 Temperature 97.6 F Pulse Rate 73 63 Respiratory 20 18 Rate Blood Pressure 156/93 151/86 O2 Sat by Pulse 98 100 Oximetry EKG Findings - EKG Comments: EKG Findings:: My EKG interpretation: Ventricular rate 75, sinus rhythm, KS 171, QRS 110, QTc 408. No KS prolongation, no QTC prolongation, no ST or T-wave changes noted. Overall, this EKG is unremarkable Medical Decision Making - Medical Decision Making Was pt. sent in by a medical professional or institution (, PA, RESCUE WORKER, urgent care, hospital, or care home...) When possible be specific @ -No Did you speak to anyone other than the patient for history (EMS, parent, family, police, friend...)? What history was obtained from this source @ -No Did you review nursing and triage notes (agree or disagree)? Why? @ -I reviewed and agree with nursing and triage notes Were old charts reviewed (outside hosp., previous admission, EMS record, old EKG, old radiological studies, urgent care reports/EKG's, care home records)? Report findings @ -No old charts were reviewed Differential Diagnosis (chest pain, altered mental status, abdominal pain women, abdominal pain men, vaginal bleeding, musculoskeletal, weakness, fever, dyspnea, syncope, headache, dizziness, GI bleed, back pain, seizure, CVA, palpatations, mental health)? @ -Differential Chest Pain: Stable Angina, Unstable Angina, STEMI, NSTEMI Aortic Dissection, Pneumothorax, Musculoskeletal, Esophageal Spasm GERD, Cholecystitis, Pancreatitis, Zoster, this is not meant to be an all-inclusive list. EKG interpreted by me (3pts min.). @ -Above X-rays interpreted by me (1pt min.). @ -Chest x-ray is nonacute CT interpreted by me (1pt min.). @ -CT angiography shows no PE U/S interpreted by me (1pt. min.). @ -None done What testing was considered but not performed or refused? (CT, X-rays, U/S, labs)? Why? @ -None What meds were considered but not given or refused? Why? @ -None Was smoking cessation discussed for >3mins.? @ -No Were there social determinants of health that impacted care today? How? (Homelessness, low income, unemployed, alcoholism, drug addiction, transportation, low edu. Level, literacy, decrease access to med. care, [facility], rehab)? @ -No Was there de-escalation of care discussed even if they declined (Discuss DNR or withdrawal of care, Hospice)? DNR status @ -No What co-morbidities impacted this encounter? (DM, HTN, Smoking, COPD, CAD, Cancer, CVA, ARF, Chemo, Hep., AIDS, mental health diagnosis, sleep apnea, morbid obesity)? @ -History of DVT Was patient admitted / discharged? Hospital course, mention meds given and route, prescriptions, significant lab abnormalities, going to OR and other pertinent info. @ -49-year-old female with pleuritic chest pain. Vital signs stable. Patient denies any shortness of breath however she does have history of DVT. Laboratory evaluation obtained. Labs unremarkable except for slightly elevated D-dimer. CT angiography ordered showed no PE. X-ray negative. Patient discharged. Clinical presentation consistent with chest strain. High risk features Did you discuss the management of the patient with other professionals (professionals i.e. , PA, RESCUE WORKER, lab, RT, psych nurse, secondary social studies teacher, ophthalmic technician, teacher, facilities officer, case filler)? Give summary @ -No Was critical care preformed (if so, how long)? @ -No Undiagnosed new problem with uncertain prognosis? @ -No Drug Therapy requiring intensive monitoring for toxicity (Heparin, Nitro, Insulin, Cardizem)? @ -No Were any procedures done? @ -No Diagnosis/symptom? Acute, or Chronic, or Acute on Chronic? Uncomplicated (without systemic symptoms) or Complicated (systemic symptoms)? @ -Pleurisy Side effects of treatment? @ -No Exacerbation, Progression, or Severe Exacerbation? @ -No Poses a threat to life or bodily function? How? (Chest pain, USA, DC, pneumonia, PE, COPD, DKA, ARF, appy, cholecystitis, CVA, Diverticulitis, Homicidal, Suicidal, threat to staff... and all critical care pts) @ -No - Lab Data Result diagrams: 09/24/24 02:07 09/24/24 02:07 Lab Results 09/24/24 09/24/24 09/24/24 Range/Units 02:07 02:07 02:07 WBC 6.57 (4.50-10.00) 10*3/uL RBC 4.43 (4.10-5.20) 10*6/uL Hgb 12.9 (12.0-15.0) g/dL Hct 39.1 (37.2-46.3) % MCV 88.3 (80.0-97.0) fL MCH 29.1 (27.0-32.0) pg MCHC 33.0 (32.0-37.0) g/dL Plt Count 286 (140-440) 10*3/uL MPV 10.2 (9.5-12.2) fL Immature Gran % (Auto) 0.5 % Neutrophils % 61.8 % Lymphocytes % 28.5 % Monocytes % 5.9 % Eosinophils % 3.0 % Basophils % 0.3 % Immature Gran # 0.03 (0.00-0.04) 10*3/uL Neutrophils # 4.06 (1.80-7.70) 10*3/uL Lymphocytes # 1.87 (0.90-5.00) 10*3/uL Monocytes # 0.39 (0.20-1.00) 10*3/uL Eosinophils # 0.20 (0.04-0.35) 10*3/uL Basophils # 0.02 (0.00-0.10) 10*3/uL PT 10.5 (10.0-12.5) sec INR 0.9 (<1.2) APTT 24.2 (22.0-30.0) sec D-Dimer 0.61 H (<0.60) mg/L FEU Sodium 140 (137-145) mmol/L Potassium 3.8 (3.5-5.1) mmol/L Chloride 107 (98-107) mmol/L Carbon Dioxide 27 (22-30) mmol/L Anion Gap 6 mmol/L BUN 16 (7-17) mg/dL Creatinine 0.63 (0.52-1.04) mg/dL Est GFR (CKD-EPI)AfAm >90 (>60 ml/min/1.73 sqM) Est GFR (CKD-EPI)NonAf >90 (>60 ml/min/1.73 sqM) Glucose 140 H (74-99) mg/dL Calcium 9.9 (8.4-10.2) mg/dL Magnesium 1.8 (1.6-2.3) mg/dL Total Bilirubin 0.4 (0.2-1.3) mg/dL AST 20 (14-36) U/L ALT 20 (4-34) U/L Alkaline Phosphatase 55 (38-126) U/L Troponin I (0.000-0.034) ng/mL Total Protein 7.0 (6.3-8.2) g/dL Albumin 4.2 (3.5-5.0) g/dL 09/24/24 Range/Units 02:07 WBC (4.50-10.00) 10*3/uL RBC (4.10-5.20) 10*6/uL Hgb (12.0-15.0) g/dL Hct (37.2-46.3) % MCV (80.0-97.0) fL MCH (27.0-32.0) pg MCHC (32.0-37.0) g/dL Plt Count (140-440) 10*3/uL MPV (9.5-12.2) fL Immature Gran % (Auto) % Neutrophils % % Lymphocytes % % Monocytes % % Eosinophils % % Basophils % % Immature Gran # (0.00-0.04) 10*3/uL Neutrophils # (1.80-7.70) 10*3/uL Lymphocytes # (0.90-5.00) 10*3/uL Monocytes # (0.20-1.00) 10*3/uL Eosinophils # (0.04-0.35) 10*3/uL Basophils # (0.00-0.10) 10*3/uL PT (10.0-12.5) sec INR (<1.2) APTT (22.0-30.0) sec D-Dimer (<0.60) mg/L FEU Sodium (137-145) mmol/L Potassium (3.5-5.1) mmol/L Chloride (98-107) mmol/L Carbon Dioxide (22-30) mmol/L Anion Gap mmol/L BUN (7-17) mg/dL Creatinine (0.52-1.04) mg/dL Est GFR (CKD-EPI)AfAm (>60 ml/min/1.73 sqM) Est GFR (CKD-EPI)NonAf (>60 ml/min/1.73 sqM) Glucose (74-99) mg/dL Calcium (8.4-10.2) mg/dL Magnesium (1.6-2.3) mg/dL Total Bilirubin (0.2-1.3) mg/dL AST (14-36) U/L ALT (4-34) U/L Alkaline Phosphatase (38-126) U/L Troponin I <0.012 (0.000-0.034) ng/mL Total Protein (6.3-8.2) g/dL Albumin (3.5-5.0) g/dL Disposition Clinical Impression: Pleurisy Disposition: HOME SELF-CARE Condition: Good Instructions (If sedation given, give patient instructions): Costochondritis (ED) Is patient prescribed a controlled substance at d/c from ED?: No Referrals: Patrick Perez DO [Primary Care Provider] - 1-2 days Time of Disposition: 03:44
[2024-09-24 02:16] LABS: Basophils # (A) 0.02 10*3/uL (0.00-0.10); Basophils % (A) 0.3 %; HCT 39.1 % (37.2-46.3); HGB 12.9 g/dL (12.0-15.0); Lymphocytes # (A) 1.87 10*3/uL (0.90-5.00); Lymphocytes % (A) 28.5 %; MCH 29.1 pg (27.0-32.0); MCV 88.3 fL (80.0-97.0); Mean Platelet Volume 10.2 fL (9.5-12.2); Monocytes # (A) 0.39 10*3/uL (0.20-1.00); Monocytes % (A) 5.9 %; Neutrophils # (A) 4.06 10*3/uL (1.80-7.70); Neutrophils % (A) 61.8 %; Platelet Count 286 10*3/uL (140-440); RBC 4.43 10*6/uL (4.10-5.20); RDW 12.9 % (11.5-14.5); WBC 6.57 10*3/uL (4.50-10.00)
[2024-09-24 02:29] LABS: ALT 20 U/L (4-34); AST 20 U/L (14-36); African American GFR (CKD) >90 (>60 ml/min/1.73 sqM); Albumin 4.2 g/dL (3.5-5.0); Alkaline Phosphatase 55 U/L (38-126); Anion Gap 6 mmol/L; Blood Urea Nitrogen 16 mg/dL (7-17); Calcium 9.9 mg/dL (8.4-10.2); Carbon Dioxide 27 mmol/L (22-30); Chloride 107 mmol/L (98-107); Glucose 140 mg/dL (74-99); Magnesium 1.8 mg/dL (1.6-2.3); Non-African American GFR(CKD) >90 (>60 ml/min/1.73 sqM); Potassium 3.8 mmol/L (3.5-5.1); Sodium 140 mmol/L (137-145); Total Bilirubin 0.4 mg/dL (0.2-1.3)
[2024-09-24 02:32] LABS: INR 0.9 (<1.2); Partial Thromboplastin Time 24.2 sec (22.0-30.0); Prothrombin Time 10.5 sec (10.0-12.5)
[2024-09-24 03:04] VITALS: BP 151/86; PULSE 63; RESP 18
--- NOTE | 2024-09-24 03:05 | CT ---
EXAM: CT Angiography Chest With Intravenous Contrast CLINICAL HISTORY: ITS.REASON CT Reason: positive D-dimer TECHNIQUE: Axial computed tomographic angiography images of the chest with intravenous contrast. CTDI is 35.8 mGy and DLP is 453.7 mGy-cm. This CT exam was performed using one or more of the following dose reduction techniques: automated exposure control, adjustment of the mA and/or kV according to patient size, and/or use of iterative reconstruction technique. MIP reconstructed images were created and reviewed. COMPARISON: No relevant prior studies available. FINDINGS: LUNGS: No focal consolidation, pleural effusion, or pneumothorax. HEART: Within normal limits. VASCULATURE: No acute pulmonary embolism. THYROID: Within normal limits. MEDIASTINUM + LYMPH NODES: Within normal limits. SUPERIOR ABDOMEN: Within normal limits. MUSCULOSKELETAL: Within normal limits. IMPRESSION: No acute pulmonary embolism.
--- NOTE | 2024-09-24 03:30 | XR ---
EXAM: XR Chest, 2 Views CLINICAL HISTORY: ITS.REASON XR Reason: Chest Pain TECHNIQUE: Frontal and lateral views of the chest. COMPARISON: No relevant prior studies available. FINDINGS: Lungs: Unremarkable. No focal consolidation, pleural effusion, or pneumothorax. Pleural space: See above. Heart: Unremarkable. No cardiomegaly. Mediastinum: Unremarkable. Bones/joints: Unremarkable. IMPRESSION: No focal consolidation, pleural effusion, or pneumothorax.
[2024-09-24] MEDS: KETOROLAC 15 MG/ML 1 ML VIAL IVP STA (03:52)
== END 2024-09-24 04:05 | disposition home or self-care (01) ==
LOC: EC 01:13
DX: R09.1 Pleurisy (principal); Z88.1 Allergy status to other antibiotic agents; Z88.8 Allergy status to other drugs, medicaments and biological substances; Z86.718 Personal history of other venous thrombosis and embolism; Z86.73 Personal history of transient ischemic attack (TIA), and cerebral infarction without residual deficits
CPT/HCPCS: 36415; 93005; 85379; 80053; 83735; 84484; 85025; 85610; 85730; 71046; 71275; 99285; 96374; J1885; Q9967

== ENCOUNTER → 2024-11-24 | Outpatient (CLI) | payer OTHER ==
--- NOTE | 2024-11-24 18:29 | XR ---
EXAMINATION TYPE: XR ankle complete RT DATE OF EXAM: 11/24/2024 4:48 PM COMPARISON: None. CLINICAL INDICATION: Female, 49 years old with history of S33.5XXA, S80.01XA, S80.02XXA, S93.901A, pa in TECHNIQUE: 3 view(s) obtained. FINDINGS: No acute fracture or dislocation is evident. Ankle mortise is intact. Soft tissues appear within norm al limits. Joint spaces are preserved. IMPRESSION: 1. No acute osseous abnormality right ankle [facility], Workstation: [facility], 11/24/2024 6:27 PM
--- NOTE | 2024-11-24 18:33 | XR ---
EXAMINATION TYPE: XR lumbar spine 2 or 3V DATE OF EXAM: 11/24/2024 4:48 PM COMPARISON: None. CLINICAL INDICATION: Female, 49 years old with history of S33.5XXA, S80.01XA, S80.02XXA, S93.901A, pa in TECHNIQUE: 3 view(s) obtained. FINDINGS: There are 5 lumbar-type vertebral bodies. The pedicles are intact. Disc heights are preserved. Verteb ral body heights are preserved. Alignment unremarkable. IMPRESSION: 1. No acute osseous abnormality lumbar spine [facility], Workstation: [facility], 11/24/2024 6:31 PM
--- NOTE | 2024-11-24 18:35 | XR ---
EXAMINATION TYPE: XR knee complete bilateral DATE OF EXAM: 11/24/2024 4:48 PM COMPARISON: 02-04-2023 CLINICAL INDICATION: Female, 49 years old with history of S33.5XXA, S80.01XA, S80.02XXA, S93.901A, pa in TECHNIQUE: 3 view(s) obtained of each knee. FINDINGS: Right knee: Prior surgical intervention is evident. Joint spaces and mild diffuse narrowing. No joint effusion is evident. No acute fracture or dislocation evident. Mild diffuse narrowing of the left knee joint space is present. No acute fracture or dislocation. No joint effusion. IMPRESSION: 1. No acute osseous abnormalities bilateral knees [facility], Workstation: [facility], 11/24/2024 6:33 PM
== END | disposition home or self-care (01) ==
LOC: RADXRMAIN 16:09
PROVIDERS: ATTEND Emergency Medicine
DX: S33.5XXA Sprain of ligaments of lumbar spine, initial encounter (principal); S80.01XA Contusion of right knee, initial encounter
CPT/HCPCS: 72100